=== PATIENT | male | born 2000 | race Caucasian/White ===

== ENCOUNTER 2020-02-09 13:23 | Emergency (ER) | payer OTHER, SELFPAY ==
[2020-02-09 13:30] VITALS: BP 134/78; PULSE 101; RESP 18; TEMP 36.9; O2SAT 100
--- NOTE | 2020-02-09 13:32 | ED.GENADULT ---
HPI - General Adult General Chief complaint: Unspecified Stated complaint: needs inhaler Time Seen by Provider: 02/09/20 13:32 Source: patient and RN notes reviewed History of Present Illness HPI narrative: Patient is a 20-year-old male who presents the urgent care requesting refills of his Symbicort and ProAir. Patient states that he had an appointment with his physician on the and it was rescheduled for what ever reason . Patient states that he is unsure of who his physician is and what their phone number is because his girlfriend has handled all of his appointments for him . Patient denies of any difficulty breathing or shortness of breath. States that he does have chronic asthma and has been out of his inhalers for 2 months. Patient states that when the weather gets colder he seems to have more difficulty breathing. No other acute complaints. No acute distress noted. Patient aware of the plan of care. Some parts of this dictation were generated by voice recognition software and may contain typographical and/or grammatical inaccuracies. Related Data Allergies Allergy/AdvReac Type Severity Reaction Status Date / Time No Known Drug Allergies Allergy Unknown Unknown Verified 02/09/20 13:42 Review of Systems Review of Systems: Narrative: CONSTITUTIONAL: Denies fever, chills, or sweats. EYES: Denies visual changes, redness, or discharge. ENT: Denies rhinorrhea, congestion, sore throat, or otalgia. CARDIOVASCULAR: Denies chest pain, palpitations, or edema. RESPIRATORY: Denies cough or dyspnea. GASTROINTESTINAL: Denies abdominal pain, nausea, vomiting, or diarrhea. GENITOURINARY: Denies dysuria or hematuria. SKIN: Denies rash or itching. MUSCULOSKELETAL: Denies back pain, joint pain, or myalgia. NEUROLOGIC: Denies headache, numbness, or weakness. All other systems reviewed are negative, except as documented in HPI. PMFSH Family History Family History (System 01/19/20 @ 13:32 by Elyse Johnson) Grandparent Diabetes mellitus Social History Social History (System 01/19/20 @ 13:32 by Elyse Johnson) Alcohol intake: never Comments At the time of my signature, I reviewed and agree with the nursing past medical, surgical, social, and family history. There is no relevant family history pertinent to the patient complaint. Exam Narrative: Exam Narrative: GENERAL: This is a well-nourished, well-developed patient, in no apparent distress. HEAD: normocephalic, atraumatic. EYES: PERRL. Sclera clear/white. Vision is grossly intact. EARS: External ears normal NOSE: External nose normal with no obvious nasal discharge, nares without redness, no rhinorrhea. THROAT: Mucous membranes moist NECK: Neck supple CARDIOVASCULAR: Regular rate and rhythm without murmurs, gallops, or rubs. RESPIRATORY: Clear to auscultation. Breath sounds equal bilaterally. No wheezes, rales, or rhonchi. SKIN: warm, intact with no suspicious lesions or rash, good texture and turgor. NEURO: awake, alert, and oriented to person, place and time. There were no obvious focal neurologic abnormalities. EXTREMITIES: No clubbing, cyanosis, or edema. Course Vital Signs Vital signs: Vital Signs Temperature 98.4 F 02/09/20 13:30 Pulse Rate 101 H 02/09/20 13:30 Respiratory Rate 18 02/09/20 13:30 Blood Pressure 134/78 02/09/20 13:30 Pulse Oximetry 100 02/09/20 13:30 Temperature 98.4 F 02/09/20 13:42 Pulse Rate 101 H 02/09/20 13:42 Respiratory Rate 18 02/09/20 13:42 Blood Pressure 134/78 02/09/20 13:42 Pulse Oximetry 100 02/09/20 13:42 Reviewed Medical Decision Making MDM Narrative Medical decision making narrative: Advised the patient to use his PCP to his benefit for medication refills. Do not miss your next appointment with your primary care physician. Discuss refills with him at that time. Differential Diagnosis Differential Diagnosis: Medication reaction Vital Signs Vital Signs: Vital Signs Tempera
[2020-02-09 13:42] VITALS: BP 134/78; PULSE 101; RESP 18; TEMP 36.9; O2SAT 100
== END 2020-02-09 13:49 | disposition home or self-care (01) ==
PROVIDERS: Emergency Provider Nurse Practitioner Family
DX: J45.909 Unspecified asthma, uncomplicated (principal)
CPT/HCPCS: 99211; G0463

== ENCOUNTER 2021-03-20 16:46 | Emergency (ER) | payer OTHER, SELFPAY ==
[2021-03-20 16:56] VITALS: BP 144/76; PULSE 128; RESP 18; TEMP 39.1; O2SAT 95
--- NOTE | 2021-03-20 17:49 | ED.URI ---
HPI - URI/Sore Throat General Chief Complaint: Upper Respiratory Infection Stated Complaint: Chest Congestion/Cough Time Seen by Provider: 03/20/21 18:10 Source: patient Mode of arrival: ambulatory Limitations: no limitations History of Present Illness HPI Narrative: 21-year-old male presented for complaint of chest tightness and cough, onset yesterday. He endorses history of asthma and has been using his inhaler more as needed. He has not taken anything for symptoms. He is noted to have temperature of 102.3 on arrival. Since arrival he endorses increase in body aches and malaise. Patient is not vaccinated for Covid. MD elicited complaint: cough Related Data Allergies Allergy/AdvReac Type Severity Reaction Status Date / Time No Known Drug Allergies Allergy Unknown Unknown Verified 02/09/20 13:42 Review of Systems Review of Systems: CONSTITUTIONAL: Endorses malaise, chills, sweats, fever. EYES: Denies visual changes, redness, or discharge. ENT: Denies rhinorrhea, congestion, sinus pain, otalgia and sore throat. CARDIOVASCULAR: Denies chest pain, palpitations, or edema. RESPIRATORY: Reports cough,chest tight, Denies dyspnea. GASTROINTESTINAL: Denies abdominal pain, nausea, vomiting, diarrhea SKIN: Denies rash or itching. MUSCULOSKELETAL: Endorses myalgia. NEUROLOGIC: Denies headache. [facility] Family History Family History Grandparent Diabetes mellitus Social History Social History Alcohol intake: never Exam Narrative: GENERAL: Ill-appearing, nontoxic no acute distress. HEAD: Normocephalic EYES: PERRLA, conjunctivae clear ENT: Mucous membranes moist. TM pearly stack with dull light reflex bilaterally; no tragal tenderness. Oropharynx erythematous without lesions. Tonsils without exudate, no drooling, no hoarseness, no trismus, uvula midline. NECK: Supple. No lymphadenopathy CHEST: Clear to auscultation, breath sounds equal. No wheezing, rhonchi, rales, or stridor. No respiratory distress, speaks in full sentences. HEART: Regular rate and rhythm. No murmur heard. SKIN: Warm, dry, no rash. NEURO: Alert and oriented x3. PSYCH: Normal mood and affect Course Course Emergency Course: covid neg flu neg will send PCR, pt is aware of symptomatic treatment, has inhaler Patient is aware of diagnosis, understands and agrees to treatment plan. Anticipatory guidance given. Patient agrees to follow-up as directed and is aware of reasons to seek care at the emergency department. Portions of this record may have been created with voice recognition software Level of Care: Express Care Visit Vital Signs Vital signs: Vital Signs Temperature 102.3 F H 03/20/21 16:56 Pulse Rate 128 H 03/20/21 16:56 Respiratory Rate 18 03/20/21 16:56 Blood Pressure 144/76 H 03/20/21 16:56 Pulse Oximetry 95 03/20/21 16:56 Temperature 102.3 F H 03/20/21 16:56 Pulse Rate 128 H 03/20/21 16:56 Respiratory Rate 18 03/20/21 16:56 Blood Pressure 144/76 H 03/20/21 16:56 Pulse Oximetry 95 03/20/21 16:56 reviewed MDM - URI/Sore Throat Differential Diagnosis Differential diagnosis: Likely upper respiratory infection, viral infection and influenza Lab Data Attestation: I reviewed the patient's lab results. Labs: Lab Results 03/20/21 Range/Units Unknown POC SARS CoV-2 Ag Negative (Negative) Influenza A Screen Negative Reference Range: Negative Influenza B Screen Negative Reference Range: Negative Discharge Plan Discharge Clinical Impression: Viral infection Patient Disposition: Home, Self-Care Condition: Stable Instructions: Antibiotic Form, COVID-19 (Coronavirus Disease 2019) (ED) Additional Instructions: Your Rapid COVID test was negative today. If you a
[2021-03-20 17:58] VITALS: TEMP 39.1
[2021-03-20] MEDS: ACETAMINOPHEN 500 MG TABLET 1000 MG PO (17:58)
[2021-03-21 17:57] LABS: SARS-CoV-2 RNA PCR Negative
== END 2021-03-20 18:33 | disposition home or self-care (01) ==
PROVIDERS: Emergency Provider Nurse Practitioner Family
DX: B34.9 Viral infection, unspecified (principal); Z20.822 Contact with and (suspected) exposure to COVID-19
CPT/HCPCS: 87426; 87804; 99213; A9270; C9803; G0463; U0003; U0005

== ENCOUNTER 2021-10-04 15:11 | Emergency (ER) | payer OTHER, SELFPAY ==
--- NOTE | 2021-10-04 15:13 | ED.SKABFB ---
HPI - Skin/Abscess/Foreign Bdy General Chief complaint: Skin/Abscess/Foreign Body Stated complaint: Bee Sting Time Seen by Provider: 10/04/21 15:12 Source: patient Mode of arrival: ambulatory Limitations: no limitations History of Present Illness HPI narrative: Mr. Rebolledo is a 21-year-old male patient presenting to the clinic today with complaints of a wasp to the right hand sting. He reports he was stung by wasp yesterday and today when he woke up he noticed that his hand was red and swollen erythemic and itchy. He denies any discharge but is having some discomfort in his hand. Related Data Allergies Allergy/AdvReac Type Severity Reaction Status Date / Time No Known Drug Allergies Allergy Unknown Unknown Verified 02/09/20 13:42 Review of Systems Review of Systems: Pertinent positives per HPI. Patient denies any fever, chills, rash, headache, visual changes, dizziness, cough, runny nose, sore throat, shortness of breath, chest pain, palpitations, nausea, vomiting, diarrhea, constipation, abdominal pain, or any urinary issues. PMFSH Family History Family History Grandparent Diabetes mellitus Social History Social History Alcohol intake: never Comments At the time of my signature, I reviewed and agree with the nursing past medical, surgical, social, and family history. There is no relevant family history pertinent to the patient complaint. Exam Narrative: General: Well-developed, well nourished, in no apparent distress Head: Normocephalic, atraumatic. Cardio: Regular rate and rhythm, s1 and s2 normal, no murmur appreciated. Resp: Clear to auscultation bilaterally, no rhonchi, rales, wheezing or rubs. Integumentary: [place], warm, and dry, insect sting to the top of the right hand, 1+ pitting edema to the right hand with erythremia and redness Course Course Emergency Course: Portions of this record may have been created with voice recognition software. Level of Care: Express Care Visit Vital Signs Vital signs: Vital Signs Temperature 36.7 C 10/04/21 15:26 Pulse Rate 103 H 10/04/21 15:26 Respiratory Rate 18 08/18/22 15:26 Blood Pressure 132/87 10/04/21 15:26 Pulse Oximetry 94 10/04/21 15:26 Oxygen Delivery Room Air 10/04/21 15:26 Temperature 36.7 C 10/04/21 15:26 Pulse Rate 103 H 10/04/21 15:26 Respiratory Rate 18 10/04/21 15:26 Blood Pressure 132/87 10/04/21 15:26 Pulse Oximetry 94 10/04/21 15:26 Oxygen Delivery Room Air 10/04/21 15:26 Vital signs reviewed MDM - Skin/Abscess/Foreign Bdy MDM Narrative Medical decision making narrative: At the time of visit patient is resting comfortably on the exam table. I suspect the patient is having allergic reaction due to the wasp sting however I do want to treat for secondary infection. Doxycycline and prednisone prescriptions were sent to the pharmacy and he voiced understanding of discharge instructions and agrees to treatment plan. Differential Diagnosis Differential diagnosis: Likely abscess of skin or subcutaneous tissue, cellulitis and insect bites Discharge Plan Discharge Clinical Impression: Accidental insect sting Patient Disposition: Home, Self-Care Condition: Stable Instructions: Antibiotic Form, Insect Bite or Sting (ED), General Allergic Reaction (ED) Additional Instructions: Take doxycycline and prednisone as prescribed. May take Tylenol/Motrin as needed for pain May take Benadryl 25 to 50 mg every 6 hours as needed for itching/swelling Keep right hand up and elevated May apply cool compress to the affected hand to help reduce swelling Follow-up with your PCP in 3 to 5 days if symptoms persist or sooner if they worsen Prescriptions: New prednisone 20 mg tablet 40 mg PO DAILY 5 Days Qty: 10 0RF doxycycline monohydrate 100 mg capsule 100 m
[2021-10-04 15:26] VITALS: BP 132/87; PULSE 103; RESP 18; TEMP 36.7; O2SAT 94
== END 2021-10-04 15:48 | disposition home or self-care (01) ==
PROVIDERS: Emergency Provider Nurse Practitioner Family
DX: T63.461A Toxic effect of venom of wasps, accidental (unintentional), initial encounter (principal); J45.909 Unspecified asthma, uncomplicated
CPT/HCPCS: 99213; G0463

== ENCOUNTER 2022-07-02 22:43 | Emergency (ER) | payer OTHER, SELFPAY ==
--- NOTE | ~2022-07-02 | CT_ITS ---
Non-contrast CT scan of the Abdomen and Pelvis Clinical indication: Abdominal pain Technique: 2.5 mm axial scans were obtained through the abdomen and pelvis without intravenous or or al contrast. Dose reduction technique was used on this scan by utilizing automated exposure control a nd iterative reconstruction technique. The dose-length product (DLP) was 750.21 mGy-cm. Findings: Images through the lung bases reveal no abnormalities. There is a 6 mm ovoid stone at the left mid ureter (axial image 115), resulting in mild left hydroure teronephrosis to this level. No right ureteral stone or right hydronephrosis. There are multiple dyana tional bilateral nonobstructing renal stones, largest measuring up to 6 mm in the right kidney. The liver, spleen, pancreas, gallbladder, and adrenals appear normal. There is no aortic aneurysm. There is no evidence of bowel obstruction. Images through the pelvis were performed. There is no evidence of ascites or lymphadenopathy. Urinary bladder unremarkable. Prostate gland and seminal vesicles are unremarkable. Impression: 6 mm stone at the mid left ureter, with mild left hydroureteronephrosis. Multiple additional bilateral nonobstructing renal stones. Reviewed, dictated and finalized at [facility]. Impression: 6 mm stone at the mid left ureter, with mild left hydroureteronephrosis. Multiple additional bilateral nonobstructing renal stones.
[2022-07-02 22:45] VITALS: BP 145/93; PULSE 54; RESP 14; TEMP 36.9; O2SAT 99
--- NOTE | 2022-07-03 00:08 | ED.GENADULT ---
HPI - General Adult General Chief complaint: Abdominal Pain Stated complaint: abdominal pain Time Seen by Provider: 07/02/22 23:17 History of Present Illness HPI narrative: is a 22-year-old male presenting with chief complaint of nausea vomiting abdominal pain. The pain started yesterday it is an achy/sharp/ burning pain throughout his abdomen but worse on the left side. His nonradiating, 10 out 10 intensity and constant. He has never had this before there are no exacerbating alleviating symptoms. It is associated with multiple episodes of nausea and vomiting. No diarrhea. No fever no chills chest pain or shortness of breath. Related Data Allergies Allergy/AdvReac Type Severity Reaction Status Date / Time No Known Drug Allergies Allergy Unknown Unknown Verified 02/09/20 13:42 [facility] Past Medical History Medical History Asthma Family History Family History Grandparent Diabetes mellitus Social History Social History Alcohol intake: never Exam Narrative: APPEARANCE: No apparent distress. patient is lying prone on the bed and speaking to into the pillow during the interview. He will not roll over when asked. Head: atraumatic. EYES: EOMI, NOSE: Atraumatic NECK: Trachea midline RESPIRATORY: No increased rate of breathing, CTAB CARDIOVASCULAR: RRR, ABDOMINAL: abdomen is soft nontender no guarding or rebound. No CVA tenderness. MUSCULOSKELETAl: No obvious deformities NEURO: Alert. Moving 4/4 extremities SKIN:: Warm, dry. Normal color PSYCHIATRIC: Normal affect Course Vital Signs Vital signs: Vital Signs Temperature 98.4 F 07/02/22 22:45 Pulse Rate 54 L 07/02/22 22:45 Respiratory Rate 14 07/02/22 22:45 Blood Pressure 145/93 H 07/02/22 22:45 Pulse Oximetry 99 07/02/22 22:45 Oxygen Delivery Room Air 07/02/22 22:45 Temperature 98.4 F 07/02/22 22:45 Pulse Rate 71 07/03/22 01:27 Respiratory Rate 15 07/03/22 01:27 Blood Pressure 111/62 07/03/22 01:27 Pulse Oximetry 96 07/03/22 01:27 Oxygen Delivery Room Air 07/02/22 22:[address] [facility] Narrative Medical decision making narrative: -Presentation: 22-year-old male presenting with nonspecific abdominal pain and diffuse nausea and vomiting. We will get a CT scan to evaluate for kidney stone. Patient will be treated symptomatically. -DDX includes but is not limited to: Cannabinoid hyperemesis, kidney stone, gastroenteritis -Co-morbidities complicating care: marijuana use history of kidney stones, asthma -Social determinants of health: patient is a paving machine operator, lives with girlfriend Sandra who is very polite. -External Chart Review: None -Hx from independent Sources: Sandra at bedside -Discussion of Management/Consultants: none -Independent interpretation of studies: White blood cell count 17. Metabolic panel normal. Urinalysis showed +3 blood, greater than 100 red blood cells, 6-10 white blood cells and trace leuk esterase. Urine is not particularly indicative of infection given his white blood cell count of 17 that will give him a dose of ceftriaxone and discharged with Keflex. Cannabinoids are positive. CT abdomen pelvis showed a 7 mm stone within the left mid ureter. Mild upstream hydronephrosis. Dx tests considered but not ordered: -Procedures: -Interventions: 2 L normal saline, Haldol, Pepcid, Zofran -Shared decision making / Disposition: Upon re-evaluation the patient is sleeping. I woke him up to inform him of his results and he quickly went back to sleep. As his pain is under control patient he will be discharged with symptomatic treatment and a trial of outpatient follow-up. return precautions given. -RX Oxycodone, Tylenol, Zofran, Flomax, Keflex Vital Signs Vital Signs: Vital Si
[2022-07-03] MEDS: SODIUM CHLORIDE 0.9% IV 2,000 ML 999 ML IV CONT (00:24)
[2022-07-03] MEDS: ONDANSETRON INJ 4 MG/2 ML VIAL IV PUSH (00:25)
[2022-07-03] MEDS: FAMOTIDINE 20 MG/2 ML VIAL IV PUSH (00:27)
[2022-07-03] MEDS: HALOPERIDOL LACTATE 5 MG/ML VIAL IM (00:28)
[2022-07-03 00:33] LABS: Appearance Urine Cloudy (Clear); Bacteria Urine None Seen /hpf; Basophils Absolute Auto 0.1 K/mm3 (0.0-0.1); Basophils Percent Auto 0.4 % (0.2-1.2); Bilirubin Urine Negative (Negative); Blood Urine 3+ (Negative); Color Urine Yellow (Yellow); Eosinophils Percent Auto 0.2 % (0-4.4); Glucose Urine UA Negative (Negative); Hematocrit 47.1 % (42.0-52.0); Hemoglobin 16.5 g/dL (14.0-18.0); Immature Granulocyte Absolute 0.11 K/mm3 (0.00-0.031); Immature Granulocyte Percent A 0.6 % (0-0.5); Immature Platelet Fraction Pct 3.9 % (0.9-11.2); Ketones Urine Negative (Negative); Leukocyte Esterase Ur Trace LEU/UL (Negative); Lymphocytes Absolute Auto 1.55 K/mm3 (0.9-3.2); Mean Corpuscular Volume 82.9 fl (80-100); Neutrophils Absolute Auto 14.5 K/mm3 (1.3-6.7); Neutrophils Percent Auto 83.8 % (45.5-73.1); Nitrate Urine Negative (Negative); Non Pathogenic Casts 0-2; Platelet Count Result 187 k/mm3 (150-375); Protein Urine 1+ mg/dL (Negative); RBC Urine >100 /hpf (0-2); Red Blood Count 5.68 M/mm3 (4.6-6.20); Specific Grav Ur 1.022 (1.001-1.035); Squamous Epithelial Cell Urine None seen /hpf (Few); White Blood Count 17.3 K/mm3 (4.5-10.0)
[2022-07-03 00:40] LABS: Add Urine Microscopic? YES
[2022-07-03 00:42] LABS: Alanine Aminotransferase 65 U/L (6-50); Alkaline Phosphatase 88 U/L (38-126); Anion Gap 14 mmol/L (8-16); Aspartate Amino Transferase 39 U/L (17-59); Bilirubin,Total 0.8 mg/dL (0.2-1.3); Blood Urea Nitrogen 15 mg/dL (9-20); Calcium 9.7 mg/dL (8.4-10.2); Carbon Dioxide 22 mmol/L (22-30); Chloride 103 mmol/L (98-107); Estimated CRCL calculation 121 ml/min; Estimated Glomerular Filt Rate > 60; Glucose 123 mg/dL (65-110); Lipase 154 U/L (23-300); Magnesium 1.8 mg/dL (1.6-2.3); Potassium 3.7 mmol/L (3.4-5.0); Sodium 139 mmol/L (137-145)
[2022-07-03 00:47] LABS: Amphetamine Screen Urine Negative (Negative); Barbiturate Screen Urine Negative (Negative); Benzodiazepines Screen Urine Negative (Negative); Cannabinoid Screen Urine Positive (Negative); Cocaine Screen Urine Negative (Negative); Methadone Screen Urine Negative (Negative); Opiate Screen Urine Negative (Negative); Phencyclidine Screen Urine Negative (Negative)
[2022-07-03] MEDS: KETOROLAC 15 MG/ML VIAL (*BKC) IV PUSH (01:10)
[2022-07-03 01:27] VITALS: BP 111/62; PULSE 71; RESP 15; O2SAT 96
[2022-07-03 02:44] VITALS: BP 116/70; PULSE 82; RESP 16; TEMP 37; O2SAT 99
== END 2022-07-03 02:44 | disposition home or self-care (01) ==
PROVIDERS: Emergency Provider Emergency Medicine
DX: N13.2 Hydronephrosis with renal and ureteral calculous obstruction (principal); F12.90 Cannabis use, unspecified, uncomplicated; R11.2 Nausea with vomiting, unspecified; J45.909 Unspecified asthma, uncomplicated
CPT/HCPCS: 36415; 74176; 80053; 80307; 81001; 83690; 83735; 85025; 85055; 87086; 96361; 96365; 96372; 96375; 99284; J0696; J1630; J1885; J2405; J7030

== ENCOUNTER 2024-03-07 08:03 | Emergency (ER) | payer OTHER, SELFPAY ==
[2024-03-07 08:07] VITALS: BP 140/89; PULSE 72; RESP 18; TEMP 35.8; O2SAT 97
--- NOTE | 2024-03-07 08:09 | ED_ITS ---
HPI - Abdominal Pain General Chief Complaint: Abdominal Pain Stated Complaint: Abdominal Pain Source: patient and RN notes reviewed Mode of arrival: ambulatory Limitations: no limitations History of Present Illness HPI narrative: 24 y/o male presented for c/o generalized abdominal pain, onset today 0400. Also reports an episode of vomiting upon arrival to the clinic. Pain is described as cramping to the middle of abdomen, rates 6/10. Has not eaten yet today. last meal 2100. Has taken tylenol. LBM this morning, normal. Denies hematochezia, melena, hematemesis, cough, fever. Hx renal stone. Related Data Allergies Allergy/AdvReac Type Severity Reaction Status Date / Time No Known Drug Allergies Allergy Unknown Unknown Verified 03/07/24 08:17 Review of Systems Review of Systems: CONSTITUTIONAL: Denies body aches, fever, chills ENT: Denies rhinorrhea, congestion CARDIOVASCULAR: Denies chest pain, palpitations, or edema. RESPIRATORY: Denies cough or dyspnea. GASTROINTESTINAL: Endorses abdominal pain, nausea, vomiting. Denies diarrhea, hematochezia, melena, hematemesis GENITOURINARY: Denies dysuria, hematuria, or CVA tenderness. SKIN: Denies rash MUSCULOSKELETAL: Denies back pain, joint pain, or myalgia. NEUROLOGIC: Denies headache All systems reviewed & are unremarkable except as noted in HPI and below PMFSH Past Medical History Medical History Asthma Family History Family History Grandparent Diabetes mellitus Social History Social History Alcohol intake: never Comments At time of signature, I have reviewed and agree with nursing past medical, surgical, social and family history unless otherwise noted. Please see nursing chart for further information. There is no relevant family history pertinent to the presenting complaint Exam Narrative: GENERAL: mildly ill-appearing, and in no acute distress. EYES: EOMI. Conjunctivae normal. ENT: Mucous membranes pink and moist. CHEST: No respiratory distress. Clear to auscultation. HEART: Regular rate and rhythm. No murmur appreciated. Normal peripheral pulses. ABDOMEN: abd soft, nondistended, normal active bowel sounds. Nontender abdomen; No guarding, rebound tenderness, asymmetry SKIN: Warm, dry, Capillary refill normal. Normal skin turgor. NEURO: No focal deficits. Alert and oriented x3. PSYCH: flat affect. Course Course Emergency Course: Patient is aware of diagnosis, understands and agrees to treatment plan. Anticipatory guidance given. Patient agrees to follow-up as directed and is aware of reasons to seek care at the emergency department. Portions of this record may have been created with voice recognition software Level of Care: Express Care Visit Vital Signs Vital signs: Vital Signs Temperature 96.4 F L 03/07/24 08:07 Pulse Rate 72 03/07/24 08:07 Respiratory Rate 18 03/07/24 08:07 Blood Pressure 140/89 03/07/24 08:07 Pulse Oximetry 97 03/07/24 08:07 Oxygen Delivery Room Air 03/07/24 08:07 Temperature 96.4 F L 03/07/24 08:07 Pulse Rate 72 03/07/24 08:07 Respiratory Rate 18 03/07/24 08:07 Blood Pressure 140/89 03/07/24 08:07 Pulse Oximetry 97 03/07/24 08:07 Oxygen Delivery Room Air 03/07/24 08:07 Transfer Transfered to: [facility] Transportation: Other (private vehicle) Transfer rationale: Pt is agreeable to transfer. Requests transfer to [facility] via private vehicle. Risks of transportation reviewed with pt including injury, worsening of condition and . v/u. Friend will be driving pt; Report called to hospital, spoke with Shara ADDISON, Dr Carcamo, accepting physician. Pt is in stable condition at time of transfer. Advised to remain NPO and go directly to the hospital. MDM - Abdominal Pain MDM Narrative Medical decision making narrative: Per previous notes, he has hx 7mm renal stone 06/2022. Dry heaving noted in clinic. Zofran given. Pt reassessed states he still feels 'terrible.' Advised ER transfer for further evaluation. Requesting [facility]. Differential Diagnosis Differential diagnosis: Likely abdominal pain, acute appendicitis, calculus of kidney, constipation, diverticulitis, gastroenteritis, pancreatitis and small bowel obstruction Discharge Plan Discharge Clinical Impression: Abdominal pain Qualifiers: Abdominal location: unspecified location Qualified Code(s): R10.9 - Unspecified abdominal pain Patient Disposition: Acute Care Hospital Condition: Stable Patient Language: Croatian Prescriptions: No Action budesonide-formoterol [Symbicort] 160-4.5 mcg/actuation HFA aerosol inhaler 2 puff INHALATION Q12H Qty: 10.2 0RF albuterol sulfate 90 mcg/actuation HFA aerosol inhaler 2 puff INHALATION QID PRN (Reason: shortness of breath or wheezing) Qty: 8 0RF Follow-up/Referrals: UNKNOWN,DOCTOR [Primary Care Provider] - Time of Disposition: 08:56
[2024-03-07] MEDS: ONDANSETRON HCL ODT 4 MG TABLET SUBLINGUAL (08:22)
--- OUTSIDE RECORDS SUMMARY | 2024-03-11 09:59 | XMS_ITS | Referral Summary ---
Author Organization [facility] Address [address] [place] [address] Care Team Providers Care Photo Specialist Name Role Phone Bran Craven MD Primary Care Provider [phone] Source Comments [facility],non-owned Affiliates and Associated Physician Practices is amultiple site organization consisting of ambulatory clinics and hospital sitesin [place], [place], [place] and [place]. This disclosure is being madepursuant to the Care Everywhere program and may not contain all information available regarding this patient. Last updated 17.[facility] Allergies No known active allergies Medications * Be aware that medications may not be up to date on this document. Alwaysverify current medications with the patient. Medication Sig Dispensed Refills Start Date End Date Status ibuprofen (MOTRIN) 400 MG tablet Take 1 Tab by mouth every 6 hours as needed for Pain. 60 Tab 1 01/27/2013 Active acetaminophen (TYLENOL) 325 MG tabletIndications: Pain Take 325 mg by mouth every 4 hours as needed. Maximum allowable Acetaminophen amount = 4 Grams (4000 mg) / 24 hours. Indications: Pain Active albuterol (PROVENTIL;VENTOLI N) (2.5 MG/3ML) 0.083% nebulizer solution Inhale 5 mg by mouth 4 times daily as needed for Shortness of Breath or Wheezing 15 Vial 1 03/07/2016 Active budesonide-formote rol (SYMBICORT) 80-4.5 MCG/ACT inhaler Inhale 2 Puffs by mouth 2 times daily 10.2 g 2 05/12/2016 Active albuterol HFA (VENTOLIN HFA) 108 (90 BASE) MCG/ACT inhaler Inhale 2 Puffs by mouth every 4 hours as needed 2 Inhaler 3 05/15/2016 Active Active Problems Problem Noted Date Diagnosed Date Fracture of metatarsal of right foot, closed Asthma with acute exacerbation 08/28/2012 Assessment & Plan (08/29/2012 1:16 PM CDT): Assessment: 12 yo male with moderate persistent asthma and history of multiple hospitalizations and noncompliance with controller medications presents with acute exacerbation likely secondary to changes in weather, environmental exposures and probably noncompliance with medications. Plan: Albuterol 5mg q3, will space per Asthma Pathway Prednisone 30mg BID for a total of 7 days Peak flows with treatments Continue home medications: Singulair, Flonase and Advair. Given that Michael has had good control since last admission, do not feel that he needs an increase in Advair dosage at this time, although needs reinforcement of benefits from daily use. Review Action Plan with Michael prior to D/C Asthma with acute exacerbati on presenting with status asthmaticus 02/01/2011 Overview (02/02/2011): 11 yo male presented to OSH with increased work of breathing, cough, supplemental O2 requirement at OSH. Admitted to PICU at in status and required continuous albuterol treatment >24 hours. Off cont treatment at 12pm on 01/31. 3 prior hospitalizations for asthma; no prior PICU admissions or intubations. He uses albuterol once a day. Has nightly coughing symptoms. Previously seen by A/I during hospitalization in 10/2010 and did not follow up. Was discharged on Advair previously which patient is taking at home. Spaced to albuterol q3hrs 5am 02/01/11 and to q4hrs early evening 02/01/11. Breathing comfortably with mild expiratory wheeze on exam prior to discharge. On RA. No nasal polyps noted. Asthma education done 02/01/11. Plan: - D/C home 02/02/11 with albuterol every 4 hours as needed - Advair / 2 puffs BID - Home on prednisone for 7 more doses - Singulair - Claritin - Flonase for chronic nasal congestion - Follow up in asthma center 02/26/11 ADHD (attention deficit hyperactivity disorder) 11/05/2010 Overview (11/07/2010): Diagnosed by pMD. Adderall was held during hospitalization. Resolved Problems Problem Noted Date Diagnosed Date Resolved Date Status asthmaticus 11/05/2010 7 Overview (01/18/2012): 11 y.o. male with PMH significant for persistent asthma with previous PICU admissions who presented to on 01/15/2012 with 2 days rhinorrhea and wheezing/cough/SOB x 1 day. Pt was out with friends the previous night and they brought him home early because they were worried about his breathing . At home he was doing albuterol nebs every 2 hours. Finally, mom decided to take him to urgent care where he was given 2 short alb Tx and IM solumedrol. He was then transferred to ED where he was found to have an RICKY of 5. He received 2 cont alb neb, one Atrovent neb and Mg. Also received NS bolus. CXR showing bilateral perihilar and pericardiac shadows suggestive of infiltrate . Mom says no documented fever at home, but has had 3 episodes of NBNB emesis and bloody nose (which she says is chronic). Has a dog at home. Known triggers include mold and weather change. Mom denies night time awakenings due to cough/SOB unless he has URI Sx. Whole family has had URI symptoms. Mom unsure when pt last took Advair; says they were without insurance recently. Pt developed worsening wheezing and increased O2 requirement (though not significantly increased work of breathing) overnight after admission. Pt was transferred to the PICU on 01/16/2012 for closer monitoring, continuous nebs and escalation of care. Patient was transitioned from continuous albuterol and spaced to q4hr treatments. He tolerated q4hr without difficulty and was transferred to the general floor later on 01/16/12. On 01/17/12 was able to wean to RA and continued to tolerate albuterol q4hr treatments. Stable for discharge. Plan: - Continue albuterol q4hr PRN - Continue oral steroids, 40 mg, for total of 5 days - Restart advair 115/21 2 puffs bid - Continue singular at bed time - Asthma education given prior to discharge - Influenza vaccination given prior to discharge - Follow-up with Pulmonology as scheduled 02/12/12. Immunizations Name Administration Dates Next Due DTaP VACCINE IM (6wk-6yrs) 06/19/2004,,1999,1999,1999 HEP B VACCINE, PED/ADOL 07/24/2000,02/08/2000, HIB BOOSTER 07/17/2000, 0,1999,1999 INFLUENZA VACCINE 01/17/2012,12/21/2007 INFLUENZA VACCINE, QUADR. (F LUZONE; FLULAVAL; FLUARIX; AFLURIA QUADRIVALENT; 6MO+), 0.5 ML (IIV4) 05/13/2016 MMR 06/19/2004,02/08/2000 PNEUMOCOCCAL CONJ, PEDS 02/08/2000,1999, POLIO IPV 06/19/2004, 0,1999,1999 VARICELLA 07/17/2000 Social History Tobacco Use Types Packs/Day Years Used Date Smoking Tobacco: Never Smokeless Tobacco: Never Alcohol Use Standard Drinks/Week Comments No 0 (1 standard drink = 0.6 oz pur e alcohol) Sex and Gender Information Value Date Recorded Sex Assigned at Not on file Gender Identity Not on file Sexual Orientation Not on file Last Filed Vital Signs Vital Sign Reading Time Taken Comments Blood Pressure 150/99 02/25/2017 10:00 AM FLAMER AFTER LASTING Pulse 100 02/25/2017 10:00 AM FLAMER AFTER LASTING Temperature 35.9 ??C (96.6 ??F) 02/25/2017 10:[address] Respiratory Rate 19 02/14/2017 4:13 PM FLAMER AFTER LASTING Oxygen Saturation 98% 02/18/2017 11:36 AM FLAMER AFTER LASTING Inhaled Oxygen Concentration 100% 01/17/2012 4 :00 AM FLAMER AFTER LASTING Weight 99.8 kg (220 lb) 03/10/2017 10:05 AM FLAMER AFTER LASTING Height 175.3 cm (5' 9 ) 03/10/2017 10:05 AM FLAMER AFTER LASTING Body Mass Index 32.49 03/10/2017 10:05 AM FLAMER AFTER LASTING Functional Status Functional Status Response Date of Assess ment Is person deaf or have serious hearing difficult y? No 05/12/2016 Is person blind or have serious difficulty seein g? No 05/12/2016 Does person have serious dif ficulty walking/climbing stairs? No 05/12/2016 Does person have difficulty dressing/bathing? No 05/12/2016 Does person have difficulty doing errands alone? No 05/12/2016 Cognitive Status Response Date of Assessm ent Does person have difficulty concentrating/remembering/making decisions? No 05/12/2016 Plan of Treatment Not on file Administered Medications Advance Directives * Full Code (Latest Code Status on File) Date Activated Date Inactivated Comments 05/12/2016 4:40 PM 05/13/2016 1:17 PM Care Teams Photo Specialist Relationship Specialty Start Date End Date Bran Craven MD [address] [place] [phone] PCP - General Internal Medicine 08/23/15
--- OUTSIDE RECORDS SUMMARY | 2024-03-11 09:59 | XMS_ITS | Clinical Summary ---
Author Organization [facility] Address [address] [place] [address] Care Team Providers Care Highway Maintenance Worker Name Role Phone Bran Craven MD Primary Care Provider [phone] Source Comments [facility],non-owned Affiliates and Associated Physician Practices is amultiple site organization consisting of ambulatory clinics and hospital sitesin [place], [place], [place]. This disclosure is being madepursuant to the Care Everywhere program and may not contain all information available regarding this patient. Last updated 17.[facility] Allergies No known active allergies Medications * [...] 02/08/2000,1999, POLIO IPV 06/19/2004, 0,1999,1999 VARICELLA 07/17/2000 Family History Medical History Relation Name Comments Asthma Mother Relation Name Status Comments Mother Social History Tobacco Use Types Packs/Day Years [...] Comments Blood Pressure 150/99 02/25/2017 10:00 AM CREDIT ANALYST Pulse 100 02/25/2017 10:00 AM CREDIT ANALYST Temperature 35.9 ??C (96.6 ??F) 02/25/2017 10:[address] Respiratory Rate 19 02/14/2017 4:13 PM CREDIT ANALYST Oxygen Saturation 98% 02/18/2017 11:36 AM CREDIT ANALYST Inhaled Oxygen Concentration 100% 01/17/2012 4 :00 AM CREDIT ANALYST Weight 99.8 kg (220 lb) 03/10/2017 10:05 AM CREDIT ANALYST Height 175.3 cm (5' 9 ) 03/10/2017 10:05 AM CREDIT ANALYST Body Mass Index 32.49 03/10/2017 10:05 AM CREDIT ANALYST Plan of Treatment Health Maintenance Due Date Last Done Comments PNEUMOCOCCAL VACCINE (1 of 1 - PPSV23) 2005 02/08/2000, 1999, 1999 DTAP/TDAP/TD VACCINES (6 - Tdap) 2010 06/19/2004, 07/17/2000, 1999, Additional history exists HIV SCREENING 2014 HPV VACCINE (1 - Male 3-dose series) 2014 HEPATITIS C SCREENING 01/18/2017 COVID-19 VACCINE (1 - season) 2023 INFLUENZA VACCINE (#1) 2023 7, 01/17/2012, 12/21/2007 DEPRESSION SCREENING 02/18/2024 ZOSTER VACCINE (1 of 2) 2049 HIB VACCINE Completed 07/17/2000, 09/1999, 1999, Additional history exists HEPATITIS B VACCINE Completed 07/24/2000, 02/08/2000, 1999 MENINGOCOCCAL (Group B) VACCINE Aged Out No longer eligible based on patient's age to complete this topic MENINGOCOCCAL VACCINE Aged Out No denise juanita eligible based on patient's age to complete this topic Advance Directives * Full Code (Latest Code Status on File) Date Activated Date Inactivated Comments 05/12/2016 4:40 PM 05/13/2016 1:[address] Maintenance Worker Relationship Specialty Start Date End Date Bran Craven MD [address] [place] [id number] PCP - General Internal Medicine 08/23/15
--- OUTSIDE RECORDS SUMMARY | 2024-03-11 10:00 | XMS_ITS | Referral Summary ---
Author Organization [facility] [address] [facility] Address [address] [place] [address] Care Team Providers Care Loading Unit Operator Name Role Phone Elmer King MD Primary Care Provider [phone] Encounters Date Type Department Care Team Description 03/11/2024 [facility] Care [address] [address] Codi Gutiérrez MA 03/10/2024 [facility] [address] [address] Codi Gutiérrez MA 03/09/2024 [facility] [address] [address] Codi Gutiérrez MA 03/07/2024 9:32 AM TRANSPORTATION AIDE - 03/07/2024 11:42 AM [facility] Emergency [facility] Emergency Department [address] [place] [address] Sandoval Carcamo MD Left ureteral stone (Primary Dx) Discharge Disposition: Discharge to home or self care from Last 3 Months Allergies No known active allergies Medications budesonide-formot Prema (SYMBICORT) 160-4.5 mcg/actuation inhaler Inhale 2 puffs 2 (two) times a day Rinse mouth with water after use. Do not swallow. 9.6 g 11 4 Active albuterol HFA (PROVENTIL HFA,VENTOLIN HFA,PROAIR HFA) 90 mcg/actuation inhalerIndication s:Moderate persistent asthma with exacerbation INHALE 2 PUFFS BY MOUTH EVERY 4 HOURS NEEDED FOR WHEEZING OR SHORTNESS OF BREATH 18 g 2 4 Active tamsulosin (FLOMAX) 0.4 mg extended release capsule Take 1 capsule (0.4 mg total) by mouth daily for 14 days 14 capsule 5 03/21/19 25 Active HYDROcodone-aceta minophen (NORCO) 5-325 mg per tabletIndications :Pain Take 1 tablet by mouth every 6 (six) hours as needed for pain 12 tablet 5 Active Active Problems Problem Noted Date Diagnosed Date Impaired cognition 09/11/2023 Weakness 09/11/2023 Annual physical exam 05/08/2023 Assessment & Plan (05/08/2023 7:53 AM CDT): Visit preventive in nature. Reviewed lifestyle recommendations. Encouraged vaping cessation. Screening labs ordered as well. Will plan accordingly once results are received. Follow-up in 1 year or sooner for any concerns. Moderate persistent asthma with exacerbation Assessment & Plan (05/08/2023 7:54 AM CDT): Reports stable with inhalers. Inhalers refilled. Highly encouraged vaping cessation. RTC for any exacerbations. He is agreeable with plan states understanding. Class 1 obesity due to exces s calories with serious comorbidity and body mass index (BMI) of 33.0 to 33.9 in adult 05/08/2023 Assessment & Plan (05/08/2023 7:53 AM CDT): Encourage heart healthy diet and exercise. Kidney stones 07/09/2022 Left ureteral stone 07/09/2022 Fracture of metatarsal of right foot, closed ADHD (attention deficit hyperactivity disorder) 11/05/2010 Overview (09/11/2023): Diagnosed by pMD. Adderall was held during hospitalization. Immunizations Name Administration Dates Next Due DTaP 06/19/2004, 1,1999,05/30,1999 Hep B, Adolescent or Pediatric 07/24/2000,1999,1999 Hib (PRP-D) 07/17/2000, 0,1999,03/29 IPV 06/19/2004, 0,1999,03/29 Influenza, Quadrivalent, Spl it, Preservative Free, Intramuscular 05/13/2016 Influenza, Trivalent, IM (MDV) 01/17/2012 Influenza, Unspecified 05/08/2023(Deferr ed: Patient Refused),10/18/2022(Deferred: Patient Refused),02/17/2021(Deferred: Patient Refused),02/18/2020(Deferred: Patient Refused),12/21/2007 MMR 06/19/2004,02/08/2000 Pneumococcal Conjugate, Unspecified 02/08/2000,0 1999,1999 Tdap 02/02/2017 Varicella 07/17/2000 Social History Tobacco Use Types Packs/Day Years Used Date Smoking Tobacco: Every Day Vaping Smokeless Tobacco: Never Tobacco Cessation:Ready to Q uit: Not Asked; Counseling Given: Not Answered PHQ-2 Answer Date Recorded PHQ-2 Total Score (If total score is 3 or more points, staff should administer the PHQ-9) 0 05/08/2023 Personal Safety Answer Date Recorded Have you ever been in or are you currently in a harmful physical or emotional relationship or is someone making you feel afraid or unsafe? Denies 03/07/2024 Sex and Gender Information Value Date Recorded Sex Assigned at Not on file Legal Sex Male 2:25 AM TRANSPORTATION AIDE Gender Identity Not on file Sexual Orientation Not on file Last Filed Vital Signs Vital Sign Reading Time Taken Comments Blood Pressure 120/82 03/07/2024 11:30 AM TRANSPORTATION AIDE Pulse 58 03/07/2024 11:30 AM TRANSPORTATION AIDE Temperature 36 ??C (96.8 ??F) 03/07/2024 9:26 AM TRANSPORTATION AIDE Respiratory Rate 15 03/07/2024 11:30 AM TRANSPORTATION AIDE Oxygen Saturation 94% 03/07/2024 11:30 AM TRANSPORTATION AIDE Inhaled Oxygen Concentration - - Weight 103.4 kg (228 lb) 03/07/2024 9:27 AM TRANSPORTATION AIDE Height 175.3 cm (5' 9 ) 09/11/2023 4:59 PM CDT Body Mass Index 33.67 09/11/2023 4:59 PM CDT Plan of Treatment Not on file Procedures Procedure Name Priority Date/Time Associated Diagnosis Comments URINALYSIS, MICROSCOPIC ONLY STAT 03/07/2024 10:56 AM TRANSPORTATION AIDE URINALYSIS AND REFLEX TO MICROSCOPIC AND CULTURE STAT 03/07/2024 10:[address] ABDOMEN PELVIS W CONTRAST ED 03/07/2024 10:00 AM TRANSPORTATION AIDE EGFR STAT 03/07/2024 9:31 AM TRANSPORTATION AIDE DIFFERENTIAL AUTO STAT 03/07/2024 9:3 1 AM TRANSPORTATION AIDE LIPASE STAT 03/07/2024 9:31 AM TRANSPORTATION AIDE COMPREHENSIVE METABOLIC PANEL STAT 03/07/2024 9:31 AM TRANSPORTATION AIDE CBC WITH AUTO DIFFERENTIAL STAT 03/07/2024 9:31 AM TRANSPORTATION AIDE from Last 3 Months Results * (ABNORMAL) Urinalysis reflex to microscopic and culture Urine (03/07/2024 10:56 AM TRANSPORTATION AIDE) Color, ur Yellow Yellow Clarity, ur Clear Clear [facility] ([place]) Specific gravity, ur 1.010 1.003 - 1.030 [facility] ([place]) pH, urine 6.5 [facility] ([place]) Comment: Interpretive Data ? Urine pH is affected by diet, medications, systemic acid-base disturbances, and renal tubular function. ??pH may affect urinary stone formation. ??For example, urine pH below 6.0 may help reduce the tendency for calcium phosphate stones and pH greater than 6.0 may reduce the tendency for uric acid stone formation. Source: [employer] Current Interpretive Data was last revised on 2017 Protein, ur ql Trace Negative [facility] ([place]) Glucose, ur ql Negative Negative [facility] ([place]) Ketones, ur Negative Negative [facility] ([place]) Bilirubin, ur Negative Negative [facility] ([place]) Blood, ur 2+(A) Negative [facility] ([place]) Urobilinogen, ur <2.0 <2.0 mg/dL [facility] ([place]) Nitrite, ur Negative Negative [facility] ([place]) Leukocyte esterase, ur Negative Negative [facility] ([place]) UA reflex comment Reflex to microscopic UA will be performed. [facility] ([place]) Urine 03/07/2024 10:5 6 AM TRANSPORTATION AIDE 03/07/2024 10:57 AM TRANSPORTATION AIDE Sandoval Carcamo MD LAB MICROBIOLOGY - GENERAL O RDERABLES Final Result [facility] ([place]) [address] [facility] [place] [address] * (ABNORMAL) Urinalysis, microscopic only (03/07/2024 10:56 AM TRANSPORTATION AIDE) WBC, ur 6-10(A) 0 - 5 /HPF RBC, ur >50(A) 0 - 2 /HPF [facility] ([place]) Epithelial cells, squamous, ur 1-5 0 - 5 /HPF [facility] ([place]) Mucous, ur Present(A) [facility] ([place]) Culture Reflex Comment Reflex conditions for urine culture (WBC >10) not met. [facility] ([place]) Urine 03/07/2024 10:5 6 AM TRANSPORTATION AIDE 03/07/2024 10:57 AM TRANSPORTATION AIDE Sandoval Carcamo MD LAB URINE ORDERABLES Final R esult [facility] ([place]) [address] [facility] [place] [address] * CT Abdomen Pelvis W Contrast (03/07/2024 10:00 AM TRANSPORTATION AIDE) Anatomical Region Laterality Modality Body N/A Computed Tomogra phy 03/07/2024 10:3 4 AM TRANSPORTATION AIDE Narrative 03/07/2024 10:37 AM TRANSPORTATION AIDE EXAM DESCRIPTION: ?? CT ABDOMEN PELVIS W CONTRAST REASON FOR STUDY: ?? Abdominal pain, acute, nonlocalized ?? Mid abdomen pain, nausea, and vomiting started early this morning. Hx of kidney stones. ? TECHNIQUE: CT scan of the abdomen and pelvis performed with intravenous and ?? without ??oral contrast using helical scanning technique with dynamic intravenous contrast injection. Reconstructed coronal and sagittal MPR images reviewed. All images stored on PACS. Automated exposure control was used as a dose optimization technique for this examination. CONTRAST TYPE/DOSE: ?? 100mL of IOVERSOL 350 MG IODINE/ML INTRAVENOUS SYRINGE ?? injected via ?? intravenous COMPARISON: ?? None available FINDINGS: LOWER CHEST: ?? No significant pulmonary abnormalities. No effusion. LIVER: ?? Normal size. ??No identified cystic or solid masses. ?? Mild hypoattenuation compatible with steatosis. 2 GALLBLADDER: ?? No stones identified. No wall thickening or inflammatory changes. BILE DUCTS: ?? No intrahepatic or extrahepatic ductal dilatation. SPLEEN: ?? Normal size. ??No focal lesions. PANCREAS: ?? No identified cystic or solid masses. No significant calcifications. No adjacent inflammation or peripancreatic fluid collections. Pancreatic duct not dilated. ?? ADRENALS: ?? Normal. KIDNEYS/URINARY TRACT: ?? No identified significant cystic or solid masses. ?? Right kidney lower pole 0.5 cm nonobstructing stone. ??Left kidney upper pole punctate calcification. ??Delayed left nephrogram. ??Moderate left-sided hydronephrosis and hydroureter. ??Left ureter vesicular junction 0.5 cm stone.. No hydronephrosis or hydroureter.. ?Urinary bladder is unremarkable. GI: ?? No dilated bowel loops. No obvious wall thickening. ??Normal appendix. ?? No significant diverticular disease. PERITONEUM: ?? No ascites or free air. RETROPERITONEUM: ?? No mass or adenopathy. REPRODUCTIVE: ?? No significant abnormality. VASCULATURE: ?? No abdominal aortic aneurysm. MUSCULOSKELETAL: ?? No significant abnormality. OTHER: ?? No other abnormality. IMPRESSION: Left ureter vesicular junction 0.5 cm stone with moderate left-sided hydronephrosis and hydroureter. ??Delayed nephrogram on the left. Right kidney lower pole 0.5 cm nonobstructing stone. Left kidney upper pole punctate calcification. Mild hepatic steatosis. THIS IS AN ELECTRONICALLY VERIFIED FINAL REPORT 03/07/2024 10:37 AM - Electronically signed by ??Mello Conrad M.D. JA: RADHA D: ??03/07/2024 10:37 AM T: ??03/07/2024 10:37 AM Report ID: [id number] Reading Location: ??[id number] Procedure Note Mello Conrad MD - 03/07/2024 EXAM DESCRIPTION: CT ABDOMEN PELVIS W CONTRAST REASON FOR STUDY: Abdominal pain, acute, nonlocalized Mid abdomen pain, nausea, and vomiting started early this morning. Hx of kidney stones. TECHNIQUE: CT scan of the abdomen and pelvis performed with intravenousand without oral contrast using helical scanning technique with dynamic intravenous contrast injection. Reconstructed coronal and sagittal MPRimages reviewed. All images stored on PACS. Automated exposure control was usedas a dose optimization technique for this examination. CONTRAST TYPE/DOSE: 100mL of IOVERSOL 350 MG IODINE/ML INTRAVENOUSSYRINGE injected via intravenous COMPARISON: None available FINDINGS: LOWER CHEST: No significant pulmonary abnormalities. No effusion. LIVER: Normal size. No identified cystic or solid masses. Mild hypoattenuation compatible with steatosis. 2 GALLBLADDER: No stones identified. No wall thickening or inflammatory changes. BILE DUCTS: No intrahepatic or extrahepatic ductal dilatation. SPLEEN: Normal size. No focal lesions. PANCREAS: No identified cystic or solid masses. No significant calcifications. No adjacent inflammation or peripancreatic fluidcollections. Pancreatic duct not dilated. ADRENALS: Normal. KIDNEYS/URINARY TRACT: No identified significant cystic or solid masses. Right kidney lower pole 0.5 cm nonobstructing stone. Left kidney upperpole punctate calcification. Delayed left nephrogram. Moderate left-sided hydronephrosis and hydroureter. Left ureter vesicular junction 0.5 cmstone.. No hydronephrosis or hydroureter.. Urinary bladder is unremarkable. GI: No dilated bowel loops. No obvious wall thickening. Normalappendix. No significant diverticular disease. PERITONEUM: No ascites or free air. RETROPERITONEUM: No mass or adenopathy. REPRODUCTIVE: No significant abnormality. VASCULATURE: No abdominal aortic aneurysm. MUSCULOSKELETAL: No significant abnormality. OTHER: No other abnormality. IMPRESSION: Left ureter vesicular junction 0.5 cm stone with moderate left-sided hydronephrosis and hydroureter. Delayed nephrogram on the left. Right kidney lower pole 0.5 cm nonobstructing stone. Left kidney upper pole punctate calcification. Mild hepatic steatosis. THIS IS AN ELECTRONICALLY VERIFIED FINAL REPORT 03/07/2024 10:37 AM - Electronically signed by Mello Conrad M.D. JA: RADHA Report ID: [id number] Reading Location: [place] [address] [place] Sandoval Carcamo MD IMG CT PROCEDURES Final Resu lt * eGFR (03/07/2024 9:31 AM TRANSPORTATION AIDE) eGFR >90 >=60 mL/min/1. 73 m2 Comment: Interpretive Data Reference Interval Normal ?>/= 90 mL/min/1.73m2 Mildly decreased* ? 60 - 89 mL/min/1.73m2 Mildly to moderately decreased ?45 - 59 mL/min/1.73m2 Moderately to severely decreased ??30 - 44 mL/min/1.73m2 Severely decreased ?15 - 29 mL/min/1.73m2 Kidney Failure ?< 15 ??mL/min/1.73m2 *Relative to young adult level Estimated glomerular filtration rate is determined by the 2020 CKD-EPI equation recommended by the National Kidney Foundation (A Unifying Approach to GFR Estimation: Recommendations of the NKF-ASK Task Force on Reassessing the Inclusion of Race in Diagnosing Kidney Disease, JASN 2020). The CKD-EPI equation should not be used for patients with unstable renal function and has not been validated in children and those over 70. Current interpretive data was last reviewed 2020. Blood 03/07/2024 9:31 AM TRANSPORTATION AIDE 03/07/2024 9:35 AM TRANSPORTATION AIDE us Sandoval Carcamo MD LAB BLOOD ORDERABLES Final R esult [facility] ([place]) [address] [facility] [place] [address] * (ABNORMAL) Differential, auto (03/07/2024 9:31 AM TRANSPORTATION AIDE) Neutrophil abs 12.3(H) 1.5 - 6.5 K/cumm Imm gran abs 0.1 0.0 - 0.1 K/cumm [facility] ([place]) Lymphocyte abs 1.4 0.8 - 3.3 K/cumm [facility] ([place]) Monocyte abs 0.9(H) 0.2 - 0.8 K/cumm [facility] ([place]) Eosinophil abs 0.1 0.0 - 0.5 K/cumm [facility] ([place]) Basophil abs 0.1 0.0 - 0.1 K/cumm [facility] ([place]) Neutrophil pct 82.9 % [facility] ([place]) Comment: Interpretive Data Percent cell count reference ranges are not reported, since discordance with absolute values may lead to misinterpretation of CBC data. Current Interpretive Data was last revised on 2017. Imm gran pct 0.9 % [facility] ([place]) Comment: Interpretive Data Percent cell count reference ranges are not reported, since discordance with absolute values may lead to misinterpretation of CBC data. Current Interpretive Data was last revised on 2017. Lymphocyte pct 9.4 % [facility] ([place]) Comment: Interpretive Data Percent cell count reference ranges are not reported, since discordance with absolute values may lead to misinterpretation of CBC data. Current Interpretive Data was last revised on 2017. Monocyte pct 6.0 % [facility] ([place]) Comment: Interpretive Data Percent cell count reference ranges are not reported, since discordance with absolute values may lead to misinterpretation of CBC data. Current Interpretive Data was last revised on 2017. Eosinophil pct 0.3 % [facility] ([place]) Comment: Interpretive Data Percent cell count reference ranges are not reported, since discordance with absolute values may lead to misinterpretation of CBC data. Current Interpretive Data was last revised on 2017. Basophil pct 0.5 % [facility] ([place]) Comment: Interpretive Data Percent cell count reference ranges are not reported, since discordance with absolute values may lead to misinterpretation of CBC data. Current Interpretive Data was last revised on 2017. Blood 03/07/2024 9:31 AM TRANSPORTATION AIDE 03/07/2024 9:35 AM TRANSPORTATION AIDE us Sandoval Carcamo MD LAB BLOOD ORDERABLES Final R esult [facility] ([place]) [address] [facility] [place] [address] * (ABNORMAL) CBC with auto differential (03/07/2024 9:31 AM TRANSPORTATION AIDE) WBC 14.8(H) 3.8 - 9.9 K/cumm Hgb 16.4 13.0 - 17.5 g/dL [facility] ([place]) Hct 48.1 38.9 - 50.3 % [facility] ([place]) Plt 264 150 - 400 K/cumm [facility] ([place]) MPV 9.0(L) 9.1 - 12.3 fL [facility] ([place]) RBC 5.74 4.30 - 5.80 M/cumm [facility] ([place]) MCV 83.8 81.3 - 96.4 fL [facility] ([place]) MCH 28.6 27.1 - 33.3 pg [facility] ([place]) MCHC 34.1 32.3 - 35.7 g/dL [facility] ([place]) RDW CV 12.3 11.1 - 14.9 % [facility] ([place]) RDW SD 36.9 35.7 - 48.1 fL [facility] ([place]) NRBC abs 0.00 0.00 - 0.01 K/cumm [facility] ([place]) Blood (Blood, Venous) 03/07/2024 9:31 AM TRANSPORTATION AIDE 03/07/2024 9:35 AM TRANSPORTATION AIDE Sandoval Carcamo MD LAB BLOOD ORDERABLES Final R esult Performing Organization Address City/[facility]/ZIP Co de Phone Number [facility] ([place]) [address] [place] [address] * Lipase (03/07/2024 9:31 AM TRANSPORTATION AIDE) Pathologist [facility] Lipase 38 10 - 99 Units/L Blood (Blood, Venous) 03/07/2024 9:31 AM TRANSPORTATION AIDE 03/07/2024 9:35 AM TRANSPORTATION AIDE Sandoval Carcamo MD LAB BLOOD ORDERABLES Final R esult Performing Organization Address [facility] de Phone Number [facility] ([place]) 1 [facility] [place] [address] * (ABNORMAL) Comprehensive metabolic panel (03/07/2024 9:31 AM TRANSPORTATION AIDE) Pathologist [facility] Sodium 138 135 - 145 mmol/L Potassium, pl 4.1 3.3 - 4.9 mmol/L [facility] ([place]) Chloride 103 97 - 110 mmol/L [facility] ([place]) CO2 25 22 - 32 mmol/L [facility] ([place]) Anion gap 11 2 - 15 mmol/L [facility] ([place]) BUN 15 6 - 25 mg/dL [facility] ([place]) Creatinine 1.05 0.80 - 1.30 mg/dL [facility] ([place]) Glucose 116 70 - 199 mg/dL [facility] ([place]) Comment: Interpretive Data Fasting glucose >/= 126 mg/dl is diagnostic for diabetes. ?? Fasting is defined as no caloric intake for at least 8 hours. Fasting glucose between 100 mg/dl to 125 mg/dl is diagnostic of prediabetes. In a patient with classic symptoms of hyperglycemia or hyperglycemic crisis, a random glucose >/= 200 mg/dl is diagnostic for diabetes. In the absence of unequivocal hyperglycemia, results should be confirmed by repeat testing. The classification and Diagnosis of Diabetes Diabetes Care 202; 46: S19-S40. Current interpretive data was last revised 2022. Calcium 10.2 8.5 - 10.3 mg/dL [facility] ([place]) Bilirubin, total 0.8 0.1 - 1.2 mg/dL [facility] ([place]) Protein, pl 7.6 6.5 - 8.5 g/dL [facility] ([place]) Albumin 4.6 3.5 - 5.0 g/dL [facility] ([place]) Alk phos 85 40 - 130 Units/L [facility] ([place]) ALT 57(H) 7 - 55 Units/L [facility]) AST 33 10 - 50 Units/L [facility] ([place]) Blood 03/07/2024 9:31 AM TRANSPORTATION AIDE 03/07/2024 9:35 AM TRANSPORTATION AIDE Sandoval Carcamo MD LAB BLOOD ORDERABLES Final R esult [facility] ([place]) [address] [facility] [place] [address] from Last 3 Months Insurance [facility] Care Teams Loading Unit Operator Relationship Specialty Start Date End Date Elmer King MD [address] [place] [address] PCP - General Family Medicine 06/29/21
--- OUTSIDE RECORDS SUMMARY | 2024-03-11 10:00 | XMS_ITS | Patient Health Summary ---
Author Organization [facility] Definition 6 Address [address] [place] [address] Care Team Providers Care Service Desk Analyst Name Role Phone Bran Craven MD Primary Care Provider [phone] Note from [facility],non-owned Affiliates and Associated Physician Practices is amultiple site organization consisting of ambulatory clinics and hospital sitesin [place], [place], [place] and [place]. This disclosure is being madepursuant to the Care Everywhere program and may not contain all information available regarding this patient. Last updated 17.[facility] Definition 6 Allergies No known active allergies Medications * Be aware that medications may not be up to date on this document. Alwaysverify current medications with the patient. * ibuprofen (MOTRIN) 400 MG tablet(Started 01/27/2013) Take 1 Tab by mouth every 6 hours as needed for Pain. 1 refill left * acetaminophen (TYLENOL) 325 MG tablet Take 325 mg by mouth every 4 hours as needed. Maximum allowable Acetaminophen amount = 4 Grams (4000 mg) / 24 hours. Indications: Pain * albuterol (PROVENTIL;VENTOLIN) (2.5 MG/3ML) 0.083% nebulizer solution(Started 03/07/2016) Inhale 5 mg by mouth 4 times daily as needed for Shortness of Breath or Wheezing 1 refill remaining * budesonide-formoterol (SYMBICORT) 80-4.5 MCG/ACT inhaler(Started 05/12/2016) Inhale 2 Puffs by mouth 2 times daily 2 refills remaining * albuterol HFA (VENTOLIN HFA) 108 (90 BASE) MCG/ACT inhaler(Started 05/15/2016) Inhale 2 Puffs by mouth every 4 hours as needed 3 refills remaining Active Problems Problem Noted Date Diagnosed Date Fracture of metatarsal of right foot, closed Asthma with acute exacerbation 08/28/2012 Asthma with acute exacerbati on presenting with status asthmaticus 02/01/2011 ADHD (attention deficit hyperactivity disorder) 11/05/2010 Resolved Problems Problem Noted Date Diagnosed Date Resolved Date Status asthmaticus 11/05/2010 7 Immunizations * DTaP VACCINE IM (6wk-6yrs)(Given 06/19/2004, 07/17/2000, 1999, 1999, 1999) * HEP B VACCINE, PED/ADOL(Given 07/24/2000, 02/08/2000, 1999) * HIB BOOSTER(Given 07/17/2000, 1999, 1999, 1999) * INFLUENZA VACCINE(Given 01/17/2012, 12/21/2007) * INFLUENZA VACCINE, QUADR. (FLUZONE; FLULAVAL; FLUARIX; AFLURIA QUADRIVALENT; 6MO+), 0.5 ML (IIV4)(Given 05/13/2016) * MMR(Given 06/19/2004, 02/08/2000) * PNEUMOCOCCAL CONJ, PEDS(Given 02/08/2000, 1999, 1999) * POLIO IPV(Given 06/19/2004, 1999, 1999, 1999) * VARICELLA(Given 07/17/2000) Social History Tobacco Use Types Packs/Day Years [...] Comments Blood Pressure 150/99 02/25/2017 10:00 AM ASSET PROTECTION MANAGER Pulse 100 02/25/2017 10:00 AM ASSET PROTECTION MANAGER Temperature 35.9 ??C (96.6 ??F) 02/25/2017 10:[address] Respiratory Rate 19 02/14/2017 4:13 PM ASSET PROTECTION MANAGER Oxygen Saturation 98% 02/18/2017 11:36 AM ASSET PROTECTION MANAGER Inhaled Oxygen Concentration 100% 01/17/2012 4 :00 AM ASSET PROTECTION MANAGER Weight 99.8 kg (220 lb) 03/10/2017 10:05 AM ASSET PROTECTION MANAGER Height 175.3 cm (5' 9 ) 03/10/2017 10:05 AM ASSET PROTECTION MANAGER Body Mass Index 32.49 03/10/2017 10:05 AM ASSET PROTECTION MANAGER Procedures * XR CERVICAL SPINE 2 OR 3VW(Performed 03/10/2017) * XR THORACIC SPINE 2VW(Performed 03/10/2017) * VANCOMYCIN LEVEL TROUGH(Performed 02/13/2017) * XR THORACIC SPINE 2VW(Performed 02/12/2017) * CULTURE ANAEROBE(Performed 02/11/2017) * CULTURE AEROBIC(Performed 02/11/2017) * CULTURE BLOOD(Performed 02/11/2017) * BASIC METABOLIC PANEL (CALCIUM TOTAL)(Performed 02/11/2017) * CBC W AUTO DIFFERENTIAL(Performed 02/11/2017) * CBC W AUTO DIFFERENTIAL(Performed 02/11/2017) * CULTURE BLOOD(Performed 02/11/2017) * XR CHEST 1VW PORTABLE(Performed 02/07/2017) * PHOSPHORUS BLOOD(Performed 02/06/2017) * CBC W AUTO DIFFERENTIAL(Performed 02/06/2017) * DIFFERENTIAL MANUAL(Performed 02/06/2017) * BASIC METABOLIC PANEL (CALCIUM TOTAL)(Performed 02/06/2017) * MAGNESIUM BLOOD(Performed 02/06/2017) * CBC W AUTO DIFFERENTIAL(Performed 02/06/2017) * XR THORACIC SPINE 1VW(Performed 02/05/2017) * DIFFERENTIAL MANUAL(Performed 02/05/2017) * PHOSPHORUS BLOOD(Performed 02/05/2017) * MAGNESIUM BLOOD(Performed 02/05/2017) * BASIC METABOLIC PANEL (CALCIUM TOTAL)(Performed 02/05/2017) * CBC W AUTO DIFFERENTIAL(Performed 02/05/2017) * CBC W AUTO DIFFERENTIAL(Performed 02/05/2017) * XR THORACIC SPINE 2VW(Performed 02/04/2017) * DIFFERENTIAL MANUAL(Performed 02/04/2017) * CBC W AUTO DIFFERENTIAL(Performed 02/04/2017) * PHOSPHORUS BLOOD(Performed 02/04/2017) * MAGNESIUM BLOOD(Performed 02/04/2017) * BASIC METABOLIC PANEL (CALCIUM TOTAL)(Performed 02/04/2017) * CBC W AUTO DIFFERENTIAL(Performed 02/04/2017) * BASIC METABOLIC PANEL (CALCIUM TOTAL)(Performed 02/03/2017) * PHOSPHORUS BLOOD(Performed 02/03/2017) * MAGNESIUM BLOOD(Performed 02/03/2017) * CBC W/O DIFFERENTIAL(Performed 02/03/2017) * CALCIUM IONIZED WHOLE BLOOD(Performed 02/03/2017) * BLOOD GASES ARTERIAL(Performed 02/03/2017) * XR CHEST 1VW PORTABLE(Performed 02/03/2017) * MAGNESIUM BLOOD(Performed 02/02/2017) * PHOSPHORUS BLOOD(Performed 02/02/2017) * DRUG ABUSE PANEL 10-20+ETHANOL URINE NO CONFIRM(Performed 02/02/2017) * CT HEAD WO CONTRAST(Performed 02/02/2017) * CT CERVICAL SPINE WO CONTRAST(Performed 02/02/2017) * CT LUMBAR SPINE WO CONTRAST(Performed 02/02/2017) * CT CHEST ABDOMEN PELVIS W CONT(Performed 02/02/2017) * CT FACIAL BONES WO CONTRAST(Performed 02/02/2017) * CT THORACIC SPINE WO CONTRAST(Performed 02/02/2017) * TYPE + SCREEN PANEL(Performed 02/02/2017) * XR PELVIS 1 OR 2VW(Performed 02/02/2017) * XR CHEST 1VW PORTABLE(Performed 02/02/2017) * LIPASE BLOOD(Performed 02/02/2017) * ALCOHOL ETHYL BLOOD(Performed 02/02/2017) * COMPREHENSIVE METABOLIC PANEL(Performed 02/02/2017) * PTT [facility](Performed 02/02/2017) * PT-INR [facility](Performed 02/02/2017) * CBC W AUTO DIFFERENTIAL(Performed 02/02/2017) * CBC W AUTO DIFFERENTIAL(Performed 02/02/2017) * XR CHEST 2VW(Performed 05/12/2016) Performed for Asthma with acute exacerbation, unspecified asthma severity * ED CRITICAL CARE(Performed 02/01/2014) Performed for Asthma exacerbation (HCC) * XR FOOT RIGHT 3VW OR MORE(Performed 04/27/2013) Performed for Injury, other and unspecified, knee, leg, ankle, and foot * XR CHEST 2VW(Performed 08/28/2012) Performed for Asthma with status asthmaticus (HCC) * XR ANKLE RIGHT 3VW OR MORE(Performed 02/21/2012) Performed for Closed right ankle fracture * ED SPLINT APPLICATION(Performed 01/26/2012) * XR TIBIA FIBULA RIGHT 2VW(Performed 01/24/2012) Performed for Injury, other and unspecified, knee, leg, ankle, and foot * XR ANKLE RIGHT 3VW OR MORE(Performed 01/24/2012) Performed for Injury, other and unspecified, knee, leg, ankle, and foot * CARDIAC EKG ORDER(Performed 01/21/2012) * CULTURE MRSA(Performed 01/16/2012) Performed for Status asthmaticus (HCC) * BASIC METABOLIC PANEL (CALCIUM TOTAL)(Performed 01/15/2012) * BLOOD GASES CAP + COOX PANEL(Performed 01/15/2012) * DIFFERENTIAL MANUAL(Performed 01/15/2012) * CBC W AUTO DIFFERENTIAL(Performed 01/15/2012) * XR CHEST 2VW(Performed 01/15/2012) Performed for Cough * INFLUENZA A+B ANTIGEN RAPID W REFLX CULTURE(Performed 01/15/2012) * VIRAL CULTURE RESPIRATORY(Performed 01/15/2012) * CARDIAC RHYTHM STRIP ORDER(Performed 02/05/2011) * LYTES (NA K CL CO2) BLOOD(Performed 01/31/2011) * MYCOPLASMA PNEUMONIAE AB IGG/IGM PANEL(Performed 01/30/2011) * MYCOPLASMA PNEUMONIAE PCR(Performed 01/30/2011) * LYTES (NA K CL CO2) BLOOD(Performed 01/30/2011) * XR CHEST 1VW(Performed 01/30/2011) Performed for Status asthmaticus (HCC) * CULTURE MRSA(Performed 01/30/2011) * DIFFERENTIAL MANUAL(Performed 01/30/2011) * CBC W AUTO DIFFERENTIAL(Performed 01/30/2011) * BASIC METABOLIC PANEL (CALCIUM TOTAL)(Performed 01/30/2011) * OXYGEN(Performed 01/30/2011) * CARDIAC RHYTHM STRIP ORDER(Performed 11/08/2010) * IP CONSULT TO PEDIATRIC ALLERGY(Performed 11/06/2010) * ALLERGEN INHALANT COMPREHENSIVE PROFILE(Performed 11/06/2010) * XR CHEST 2VW(Performed 11/05/2010) Performed for Wheezing Results * XR CERVICAL SPINE 2 OR 3VW (03/10/2017 10:07 AM ASSET PROTECTION MANAGER) Anatomical Region Laterality Modality Spine Other Impressions 03/10/2017 1:57 PM ASSET PROTECTION MANAGER IMPRESSION: Normal alignment of the cervical spine. The patient's known avulsion fracture of the right occipital condyle is not seen on this study. Dictated by Richy Kelsey MD (residential sales representative). IDr. ILEANA M.D. have personally reviewed and interpreted this examination/study. This report was electronically signed by ILEANA CANO M.D. ??on 03/10/2017 1:57 PM . Narrative 03/10/2017 1:57 PM ASSET PROTECTION MANAGER EXAMINATION: XR SPINE CERVICAL 2 OR 3 VIEWS HISTORY: open mouth FINDINGS: Comparison is made with a CT cervical spine from 02/02/2017. A c-collar is in place. C7 is not well-seen on the lateral image. The vertebral bodies are normally aligned. The patient's known avulsion fracture of the right occipital condyle is not seen on this study. The intervertebral disc spaces are maintained. The dens is intact and the lateral masses are normally aligned. The predental interval and prevertebral soft tissues are normal. Procedure Note Ileana Cano MD - 05/21/2017 EXAMINATION: XR SPINE CERVICAL 2 OR 3 VIEWS HISTORY: open mouth FINDINGS: Comparison is made with a CT cervical spine from 02/02/2017. A c-collar is in place. C7 is not well-seen on the lateral image. Thevertebral bodies are normally aligned. The patient's known avulsionfracture of the right occipital condyle is not seen on this study. Theintervertebral disc spaces are maintained. The dens is intact and the lateral masses are normally aligned. Thepredental interval and prevertebral soft tissues are normal. IMPRESSION IMPRESSION: Normal alignment of the cervical spine. The patient's known avulsionfracture of the right occipital condyle is not seen on this study. Dictated by Richy Kelsey MD (residential sales representative). I, Dr. ILEANA CANO M.D. have personally reviewed and interpreted thisexamination/study. This report was electronically signed by ILEANA CANO M.D. on 03/10/20171:57 PM . Yash Lehman MD DIAGNOSTIC IMAGING O RDERABLES * XR THORACIC SPINE 2VW (03/10/2017 10:02 AM ASSET PROTECTION MANAGER) Only the most recent of3 resultswithin the time period is included. Anatomical Region Laterality Modality Spine Other Impressions 03/10/2017 1:58 PM ASSET PROTECTION MANAGER IMPRESSION: Externally braced T8 and T10 compression fractures in unchanged appearance. Dictated by Richy Kelsey MD (residential sales representative). Dr. ILEANA Maldonado M.D. have personally reviewed and interpreted this examination/study. This report was electronically signed by ILEANA CANO M.D. ??on 03/10/2017 1:58 PM . Narrative 03/10/2017 1:58 PM ASSET PROTECTION MANAGER EXAMINATION: XR SPINE THORACIC 2 VWS HISTORY: thoracic fx FINDINGS: Comparison is made with a study from 2017. An external brace is present. T8 and T10 compression fractures are unchanged with approximately 50 percent height loss anteriorly. No new compression fracture is identified. No subluxation is seen. Procedure Note Ileana Cano MD - 05/21/2017 EXAMINATION: XR SPINE THORACIC 2 VWS HISTORY: thoracic fx FINDINGS: Comparison is made with a study from 2017. An external brace is present. T8 and T10 compression fractures areunchanged with approximately 50 percent height loss anteriorly. No newcompression fracture is identified. No subluxation is seen. IMPRESSION IMPRESSION: Externally braced T8 and T10 compression fractures in unchangedappearance. Dictated by Richy Kelsey MD (residential sales representative). Dr. ILEANA Maldonado M.D. have personally reviewed and interpreted thisexamination/study. This report was electronically signed by ILEANA CANO M.D. on 03/10/20171:58 PM . Yash Lehman MD DIAGNOSTIC IMAGING O RDERABLES * (ABNORMAL) VANCOMYCIN LEVEL TROUGH (02/13/2017 10:35 AM ASSET PROTECTION MANAGER) Vancomycin Trough 5.2(L) 10.0 - 20.0 mcg/mL [facility] Blood specimen (specimen) BLOOD SPECIMEN / Unknown 02/13/2017 10:35 AM ASSET PROTECTION MANAGER 02/13/2017 10:38 AM ASSET PROTECTION MANAGER Jr Bianchi MD LAB - CHEMISTRY JESSIE SIMPSON [address] [phone] * (ABNORMAL) CULTURE ANAEROBE (02/11/2017 6:15 PM ASSET PROTECTION MANAGER) Culture Anaerobic PROPIONIBACTERIUM ACNES(A) [facility] Comment:Light Growth Propion ibacterium Acnes Abscess SPECIMEN FROM ABSCESS / Unknown 02/11/2017 6:15 PM ASSET PROTECTION MANAGER 02/11/2017 6:32 PM ASSET PROTECTION MANAGER Narrative [facility] - 02/18/2017 3:27 PM ASSET PROTECTION MANAGER Surgical incision site on patient's scalp Specimen Type->Abscess Resulting Lab: ?? [facility] MICROBIOLOGY [address] [place] [address] PH: [phone] Resulting Lab: ?? [facility]CROBIOLOG[facility] [address] [place] [address] PH: [phone] Resulting Lab: ?? [facility] MICROBIOLOGY [address] [place] [address] PH: [phone] Aurelia Chambers MD LAB - MICROBIOL OGY ORDERABLES Performing Organization Address City/State/[facility] Co de Phone Number [address] [phone] * (ABNORMAL) CULTURE AEROBIC (02/11/2017 6:14 PM ASSET PROTECTION MANAGER) Culture Aerobic Normal Skin Berenice [facility] Culture Aerobic GRAM NEGATIVE BACILLI(A) [facility] Comment: Rare Gram Negative Bacilli Id'd as Lelliottia amnigena (formerly Enterobacter amnigenus) Gram Stain Moderate Red Blood Cells [facility] Gram Stain Rare White Blood Cells [facility] Gram Stain No Organism Seen [facility] Abscess (Abscess (site in comments)) 02/11/2017 6:14 PM ASSET PROTECTION MANAGER 02/11/2017 6:32 PM ASSET PROTECTION MANAGER Narrative [facility] - 02/14/2017 10:44 AM ASSET PROTECTION MANAGER Surgical incision site on patient's scalp Specimen Type->Abscess Specimen Source->Abscess (must specify site in comments) Resulting Lab: ?? [facility] MICROBIOLOG[facility] [address] [place] [address] PH: [phone] Organism Antibiotic Method Susceptibility Gram-negative bacilli Amikacin SUSCEPTIBILITY <=2 mcg/ml: Sensitive Gram-negative bacilli Cefazolin SUSCEPTIBILITY 8 mcg/ml: Sensitive Gram-negative bacilli Cefepime SUSCEPTIBILITY <=1 mcg/ml: Sensitive Gram-negative bacilli Ceftriaxone SUSCEPTIBILITY <=1 mcg/ml: Sensitive Gram-negative bacilli Ciprofloxacin SUSCEPTIBILITY <=0.25 mcg/ml: Sensitive Gram-negative bacilli Gentamicin SUSCEPTIBILITY <=1 mcg/ml: Sensitive Gram-negative bacilli Imipenem SUSCEPTIBILITY <=0.25 mcg/ml: Sensitive Gram-negative bacilli Levofloxacin SUSCEPTIBILITY <=0.12 mcg/ml: Sensitive Gram-negative bacilli Piperacillin-tazobactam SUSCEPTIBILITY <=4 mcg/ml: Sensitive Gram-negative bacilli Tobramycin SUSCEPTIBILITY <=1 mcg/ml: Sensitive Gram-negative bacilli Trimethoprim-sulfamethoxa zole SUSCEPTIBILITY <=20 mcg/ml: Sensitive Aurelia Chambers MD LAB - MICROBIOL OGY ORDERABLES Performing Organization Address [facility] [place] [address], [facility] [phone] * CULTURE BLOOD (02/11/2017 3:42 PM ASSET PROTECTION MANAGER) Only the most recent of2 resultswithin the time period is included. Culture Blood No Growth at 5 days [facility] Blood specimen (specimen) (Venous, Peripheral) 02/11/2017 3:42 PM ASSET PROTECTION MANAGER 02/11/2017 3:46 PM ASSET PROTECTION MANAGER Narrative [facility] - 02/16/2017 8:00 PM ASSET PROTECTION MANAGER Draw 15 minutes after Culture 1 from a different site Resulting Lab: ?? [facility] MICROBIOLOGY [address] [place] [address] PH: [phone] Aurelia Chambers MD LAB - MICROBIOL OGY ORDERABLES Performing Organization Address [facility] [place] [address], [facility] [phone] * (ABNORMAL) CBC W AUTO DIFFERENTIAL (02/11/2017 3:41 PM ASSET PROTECTION MANAGER) Only the most recent of12 resultswithin the time period is included. WBC 14.8(H) 3.5 - 10.5 10? 3 /uL [facility] RBC 4.38 4.30 - 5.70 10? 6 /uL [facility] Hemoglobin 12.2(L) 13.5 - 17.5 g/dL [facility] Hematocrit 37.1(L) 39.0 - 50.0 % [facility] MCV 84.7 81.0 - 97.0 fL [facility] MCH 27.9(L) 28.0 - 34.0 pg [facility] MCHC 32.9 32.0 - 36.0 g/dL [facility] Platelet Count 504(H) 150 - 400 10? 3 /uL [facility] Comment:Results are confirme d by repeat analysis. RDW-SD 38.4 36.0 - 50.0 fL [facility] RDW-CV 12.5 11.2 - 14.8 % [facility] MPV 8.5(L) 9.3 - 12.8 fL [facility] nRBC Absolute 0.00 0 10? 3 /uL [facility] nRBC Auto 0.0 0 /100 WBC [facility] Neutrophils % 78.2(H) 35.0 - 70.0 % [facility] Lymphocytes % 12.3(L) 19.7 - 55.1 % [facility] Monocytes % 7.5 3.0 - 15.0 % [facility] Eosinophils % 1.8 0.0 - 6.0 % [facility] Basophil % 0.2 0.0 - 1.5 % [facility] Neutrophils Absolute 11.5(H) 1.6 - 7.0 10? 3 /uL [facility] Lymphocyte Absolute 1.8 0.8 - 2.9 10? 3 /uL [facility] Monocytes Absolute 1.10(H) 0.14 - 0.66 10? 3 /uL [facility] Eosinophils Absolute 0.27(H) 0.00 - 0.22 10? 3 /uL [facility] Basophils Absolute 0.03 0.00 - 0.06 10? 3 /uL [facility] Immature Granulocytes % 1.5(H) 0.0 - 1.0 % [facility] Blood specimen (specimen) BLOOD SPECIMEN / Unknown 02/11/2017 3:41 PM ASSET PROTECTION MANAGER 02/11/2017 3:46 PM ASSET PROTECTION MANAGER Aurelia Chambers MD LAB - HEMATOLOG Y ORDERABLES Performing Organization Address City/[facility]/ZIP Co de Phone Number [address] [phone] * BASIC METABOLIC PANEL (CALCIUM TOTAL) (02/11/2017 3:41 PM ASSET PROTECTION MANAGER) Only the most recent of7 resultswithin the time period is included. BUN 10 7 - 26 mg/dL [facility] Creatinine 0.7 0.6 - 1.2 mg/dL [facility] Sodium 138 136 - 145 mmol/L [facility] Potassium 3.8 3.5 - 4.5 mmol/L [facility] Chloride 101 98 - 107 mmol/L [facility] CO2 27 22 - 29 mmol/L [facility] Glucose 98 70 - 115 mg/dL [facility] Calcium 9.6 8.4 - 10.2 mg/dL [facility] Anion Gap 14 8 - 18 [facility] BUN/Creatinine Ratio 14 7 - 23 [facility] Osmolality Calculated 285 270 - 300 mOsm/kg [facility] eGFR >60 >60 mL/min/1.7 3 m2 [facility] Blood specimen (specimen) BLOOD SPECIMEN / Unknown 02/11/2017 3:41 PM ASSET PROTECTION MANAGER 02/11/2017 3:46 PM ASSET PROTECTION MANAGER Aurelia Chambers MD LAB - CHEMISTRY ORDERABLES Performing Organization Address [facility] Co de Phone Number [address] [phone] * XR CHEST 1VW PORTABLE (02/07/2017 5:45 AM ASSET PROTECTION MANAGER) Only the most recent of3 resultswithin the time period is included. Anatomical Region Laterality Modality Chest Other Impressions 02/07/2017 12:25 PM ASSET PROTECTION MANAGER IMPRESSION: Increased interstitial markings are likely secondary to low lung volumes and hypoventilation. Mild basilar opacities represent airspace disease and/or atelectasis. No pleural effusion or pneumothorax is identified. The cardiomediastinal silhouette is normal. The visible bony thorax is intact. Dictated by Richard Dobson MD (residential sales representative). Dr. ROBYN Maldonado M.D. have personally reviewed and interpreted this examination/study. This report was electronically signed by ROBYN MARTINEZ M.D. ??on 02/07/2017 12:25 PM . Narrative 02/07/2017 12:25 PM ASSET PROTECTION MANAGER EXAMINATION: PX CHEST 1 VW HISTORY: 17-year-old male with poor O2 saturation. COMPARISON: AP portable chest dated 02/03/2017. FINDINGS/ Procedure Note Robyn Martinez MD - 05/16/2017 EXAMINATION: PX CHEST 1 VW HISTORY: 17-year-old male with poor O2 saturation. COMPARISON: AP portable chest dated 02/03/2017. FINDINGS/ IMPRESSION IMPRESSION: Increased interstitial markings are likely secondary to low lung volumesand hypoventilation. Mild basilar opacities represent airspace diseaseand/or atelectasis. No pleural effusion or pneumothorax is identified. Thecardiomediastinal silhouette is normal. The visible bony thorax is intact. Dictated by Richard Dobson MD (residential sales representative). Dr. ROBYN Maldonado M.D. have personally reviewed and interpretedthis examination/study. This report was electronically signed by ROBYN MARTINEZ M.D. on02/07/2017 12:25 PM . Jose Daniel Brown MD DIAGNOSTIC IMAGING O RDERABLES * (ABNORMAL) DIFFERENTIAL MANUAL (02/06/2017 4:15 AM ASSET PROTECTION MANAGER) Only the most recent of5 resultswithin the time period is included. WBC (corrected for NRBC) 14.9 10? 3 /uL [facility] Total Cell Count 100 [facility] Neutrophils Absolute Manual 12.07(H) 1.60 - 7.00 10? 3 /uL [facility] Comment:(BANDS+SEGS) x WBC = NEUT # (ANC) Lymphocyte Absolute Manual 1.79 0.80 - 2.90 10? 3 /uL [facility] Monocytes Absolute Manual 1.04(H) 0.14 - 0.66 10? 3 /uL [facility] Band % Manual 4 0 - 10 % [facility] Neutrophil % Manual 77(H) 30 - 60 % [facility] Lymphocyte % Manual 12(L) 20 - 45 % [facility] Monocytes % Manual 7 2 - 10 % [facility] Platelet Estimate Adequate Adequate [facility] RBC Morphology Normal [facility] Blood specimen (specimen) BLOOD SPECIMEN / Unknown 02/06/2017 4:15 AM ASSET PROTECTION MANAGER 02/06/2017 4:25 AM ASSET PROTECTION MANAGER Jose Daniel Brown MD LAB - HEMATOLOGY WISAM BARILLAS Performing Organization Address [facility]/ZIP Co de Phone Number [address] [phone] * PHOSPHORUS BLOOD (02/06/2017 4:15 AM ASSET PROTECTION MANAGER) Only the most recent of5 resultswithin the time period is included. Phosphorus 3.3 2.3 - 4.7 mg/dL [facility] Comment:Confirmed by repeat analysis. Blood specimen (specimen) BLOOD SPECIMEN / Unknown 02/06/2017 4:15 AM ASSET PROTECTION MANAGER 02/06/2017 4:25 AM ASSET PROTECTION MANAGER Jose Daniel Brown MD LAB - CHEMISTRY JESSIE SIMPSON Performing Organization Address [facility] Co de Phone Number [address] [phone] * MAGNESIUM BLOOD (02/06/2017 4:15 AM ASSET PROTECTION MANAGER) Only the most recent of5 resultswithin the time period is included. Magnesium 1.8 1.6 - 2.6 mg/dL [facility] Blood specimen (specimen) BLOOD SPECIMEN / Unknown 02/06/2017 4:15 AM ASSET PROTECTION MANAGER 02/06/2017 4:25 AM ASSET PROTECTION MANAGER Jose Daniel Brown MD LAB - CHEMISTRY JESSIE SIMPSON Performing Organization Address [facility] Co de Phone Number [address] [phone] * XR THORACIC SPINE 1VW (02/05/2017 12:28 PM ASSET PROTECTION MANAGER) Anatomical Region Laterality Modality Spine Other Impressions 02/06/2017 5:31 PM ASSET PROTECTION MANAGER IMPRESSION: 3 lateral views are received. There is no subluxation. Fractures of the T8 and T10 vertebral bodies are again demonstrated without further height loss. Left transverse process fractures at T7-T10 are not visible. Dictated by Richard Dobson MD (residential sales representative). Dr. ILEANA Maldonado M.D. have personally reviewed and interpreted this examination/study. This report was electronically signed by ILEANA CANO M.D. ??on 02/06/2017 5:31 PM . Narrative 02/06/2017 5:31 PM ASSET PROTECTION MANAGER EXAMINATION: XR SPINE THORACIC 1 VIEW HISTORY: Inadequate Lateral COMPARISON: Thoracic spine 2 views dated 02/04/2017 FINDINGS/ Procedure Note Ileana Cano MD - 05/16/2017 EXAMINATION: XR SPINE THORACIC 1 VIEW HISTORY: Inadequate Lateral COMPARISON: Thoracic spine 2 views dated 02/04/2017 FINDINGS/ IMPRESSION IMPRESSION: 3 lateral views are received. There is no subluxation. Fractures of the T8and T10 vertebral bodies are again demonstrated without further heightloss. Left transverse process fractures at T7-T10 are not visible. Dictated by Richard Dobson MD (residential sales representative). Dr. ILEANA Maldonado M.D. have personally reviewed and interpreted thisexamination/study. This report was electronically signed by ILEANA CANO M.D. on 02/06/20175:31 PM . Jose Daniel Brown MD DIAGNOSTIC IMAGING O RDERABLES * (ABNORMAL) CBC W/O DIFFERENTIAL (02/03/2017 8:15 AM ASSET PROTECTION MANAGER) WBC 22.7(H) 3.5 - 10.5 10? 3 /uL [facility] RBC 4.67 4.30 - 5.70 10? 6 /uL [facility] Hemoglobin 13.3(L) 13.5 - 17.5 g/dL [facility] Hematocrit 39.1 39.0 - 50.0 % [facility] MCV 83.7 81.0 - 97.0 fL [facility] MCH 28.5 28.0 - 34.0 pg [facility] MCHC 34.0 32.0 - 36.0 g/dL [facility] Platelet Count 209 150 - 400 10? 3 /uL [facility] RDW-SD 38.8 36.0 - 50.0 fL [facility] RDW-CV 12.8 11.2 - 14.8 % [facility] MPV 9.9 9.3 - 12.8 fL [facility] Blood specimen (specimen) BLOOD SPECIMEN / Unknown 02/03/2017 8:15 AM ASSET PROTECTION MANAGER 02/03/2017 8:25 AM ASSET PROTECTION MANAGER Jose Daniel Brown MD LAB - HEMATOLOGY ORD ERABLES [address] [phone] * (ABNORMAL) CALCIUM IONIZED WHOLE BLOOD (02/03/2017 8:15 AM ASSET PROTECTION MANAGER) Ionized Calcium Whole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 maxillofacial bones,orbits, and paranasal sinuses was performed without contrast according tostandard protocol. Reformatted axial, sagittal, and coronal images of thethoracic and lumbar spine were obtained by the technologist from a concurrently performed body CT andsent to the workstation for review. FINDINGS: Head: A large scalp laceration and degloving type of injury extend from theright frontal scalp across the vertex to the left posterior parietalscalp, with air and innumerable foreign objects and debris beneath thegalea against the cranium. A large skin flap is noted lifted off the skull. No acute intra- or extra-axial fluid collections are identified. Theventricles are of normal size, shape, and morphology. The basilar cisternsare patent. No mass effect or midline shift is seen. The stack-white matterdifferentiation is normal. Maxillofacial: Other than an old left lamina papyracea fracture, the orbits appearnormal. Orbital floor and the lamina papyracea are seen, associated withextraconal hemorrhage and gas. The extraocular muscles appear to be normalin size and density. Left periorbital soft tissue swelling is noted. The globes are intact. The optic nerves areintact. The globes are unconjugated. Multiple punctate radiopaque foreignbodies are seen on the face and in the upper inner the hips. Hemorrhage isnoted in the left maxillary sinus and left ethmoid air cells. The hard palate, mandible, andtemporomandibular joints appear normal. The mastoid air cells are clear. Cervical spine: The study is degraded by motion artifacts. There is a bone fragment adjacent to the medial aspect of the rightoccipital condyle, likely representing a type III avulsion fracture atthe attachment of the right alar ligament. The alignment is normal. Vertebral bodies are normal in height withoutevidence of acute fracture. The craniocervical junction is normal. Theintervertebral discs appear normal. No central canal stenosis is seen. Thefacets appear normal. The uncovertebral joints appear normal. No neural foraminal stenosis is seen.No soft tissue abnormality is identified. IMPRESSION IMPRESSION: 1. No acute intracranial process. 2. Extensive scalp laceration and degloving injury with innumerableradiopaque foreign bodies in the wound as described above. 3. Comminuted fractures of the left lamina papyracea and left orbitalfloor with a small amount of the gas and the hemorrhage in the extraconalspace. 4. Type III a avulsion fracture of the right occipital condyle, likely atthe attachment site of the right alar ligament. 5. No acute fracture or dislocation in the cervical spine. The preliminary findings have been discussed with Dr. Aguilar at 6:43 PM on02/02/[address] De. This report was electronically signed by ANUPAM CERVANTES M.D. on 02/03/20177:57 AM . Kirt Aguilar MD CT ORDERABLES * CT FACIAL BONES WO CONTRAST (02/02/2017 6:28 PM ASSET PROTECTION MANAGER) Anatomical Region Laterality Modality Head Other Impressions 02/03/2017 7:57 AM ASSET PROTECTION MANAGER IMPRESSION: 1. No acute intracranial process. 2. Extensive scalp laceration and degloving injury with innumerable radiopaque foreign bodies in the wound as described above. 3. Comminuted fractures of the left lamina papyracea and left orbital floor with a small amount of the gas and the hemorrhage in the extraconal space. 4. Type III a avulsion fracture of the right occipital condyle, likely at the attachment site of the right alar ligament. 5. No acute fracture or dislocation in the cervical spine. The preliminary findings have been discussed with Dr. Aguilar at 6:43 PM on 02/02/[address] De. This report was electronically signed by ANUPAM CERVANTES M.D. ??on 02/03/2017 7:57 AM . Narrative 02/03/2017 7:57 AM ASSET PROTECTION MANAGER EXAMINATION: 1. Computed tomography (CT) of the head without contrast 2. CT of the maxillofacial bones, orbits, and paranasal sinuses without contrast 3. CT of the cervical spine without contrast HISTORY: Trauma TECHNIQUE: CT of the head, cervical spine, and maxillofacial bones, orbits, and paranasal sinuses was performed without contrast according to standard protocol. Reformatted axial, sagittal, and coronal images of the thoracic and lumbar spine were obtained by the technologist from a concurrently performed body CT and sent to the workstation for review. FINDINGS: Head: A large scalp laceration and degloving type of injury extend from the right frontal scalp across the vertex to the left posterior parietal scalp, with air and innumerable foreign objects and debris beneath the galea against the cranium. A large skin flap is noted lifted off the skull. No acute intra- or extra-axial fluid collections are identified. The ventricles are of normal size, shape, and morphology. The basilar cisterns are patent. No mass effect or midline shift is seen. The stack-white matter differentiation is normal. Maxillofacial: Other than an old left lamina papyracea fracture, the orbits appear normal. Orbital floor and the lamina papyracea are seen, associated with extraconal hemorrhage and gas. The extraocular muscles appear to be normal in size and density. Left periorbital soft tissue swelling is noted. The globes are intact. The optic nerves are intact. The globes are unconjugated. Multiple punctate radiopaque foreign bodies are seen on the face and in the upper inner the hips. Hemorrhage is noted in the left maxillary sinus and left ethmoid air cells. The hard palate, mandible, and temporomandibular joints appear normal. The mastoid air cells are clear. Cervical spine: The study is degraded by motion artifacts. There is a bone fragment adjacent to the medial aspect of the right occipital condyle, likely representing a type III ??avulsion fracture at the attachment of the right alar ligament. The alignment is normal. Vertebral bodies are normal in height without evidence of acute fracture. The craniocervical junction is normal. The intervertebral discs appear normal. No central canal stenosis is seen. The facets appear normal. The uncovertebral joints appear normal. No neural foraminal stenosis is seen. No soft tissue abnormality is identified. Procedure Note Anupam Cervantes MD - 05/16/2017 EXAMINATION: 1. Computed tomography (CT) of the head without contrast 2. CT of the maxillofacial bones, orbits, and paranasal sinuses withoutcontrast 3. CT of the cervical spine without contrast HISTORY: Trauma TECHNIQUE: CT of the head, cervical spine, and maxillofacial bones,orbits, and paranasal sinuses was performed without contrast according tostandard protocol. Reformatted axial, sagittal, and coronal images of thethoracic and lumbar spine were obtained by the technologist from a concurrently performed body CT andsent to the workstation for review. FINDINGS: Head: A large scalp laceration and degloving type of injury extend from theright frontal scalp across the vertex to the left posterior parietalscalp, with air and innumerable foreign objects and debris beneath thegalea against the cranium. A large skin flap is noted lifted off the skull. No acute intra- or extra-axial fluid collections are identified. Theventricles are of normal size, shape, and morphology. The basilar cisternsare patent. No mass effect or midline shift is seen. The stack-white matterdifferentiation is normal. Maxillofacial: Other than an old left lamina papyracea fracture, the orbits appearnormal. Orbital floor and the lamina papyracea are seen, associated withextraconal hemorrhage and gas. The extraocular muscles appear to be normalin size and density. Left periorbital soft tissue swelling is noted. The globes are intact. The optic nerves areintact. The globes are unconjugated. Multiple punctate radiopaque foreignbodies are seen on the face and in the upper inner the hips. Hemorrhage isnoted in the left maxillary sinus and left ethmoid air cells. The hard palate, mandible, andtemporomandibular joints appear normal. The mastoid air cells are clear. Cervical spine: The study is degraded by motion artifacts. There is a bone fragment adjacent to the medial aspect of the rightoccipital condyle, likely representing a type III avulsion fracture atthe attachment of the right alar ligament. The alignment is normal. Vertebral bodies are normal in height withoutevidence of acute fracture. The craniocervical junction is normal. Theintervertebral discs appear normal. No central canal stenosis is seen. Thefacets appear normal. The uncovertebral joints appear normal. No neural foraminal stenosis is seen.No soft tissue abnormality is identified. IMPRESSION IMPRESSION: 1. No acute intracranial process. 2. Extensive scalp laceration and degloving injury with innumerableradiopaque foreign bodies in the wound as described above. 3. Comminuted fractures of the left lamina papyracea and left orbitalfloor with a small amount of the gas and the hemorrhage in the extraconalspace. 4. Type III a avulsion fracture of the right occipital condyle, likely atthe attachment site of the right alar ligament. 5. No acute fracture or dislocation in the cervical spine. The preliminary findings have been discussed with Dr. Aguilar at 6:43 PM on02/02/[address] De. This report was electronically signed by ANUPAM CERVANTES M.D. on 02/03/20177:57 AM . Kirt Aguilar MD CT ORDERABLES * CT HEAD WO CONTRAST (02/02/2017 6:28 PM ASSET PROTECTION MANAGER) Anatomical Region Laterality Modality Head Other Impressions 02/03/2017 7:57 AM ASSET PROTECTION MANAGER IMPRESSION: 1. No acute intracranial process. 2. Extensive scalp laceration and degloving injury with innumerable radiopaque foreign bodies in the wound as described above. 3. Comminuted fractures of the left lamina papyracea and left orbital floor with a small amount of the gas and the hemorrhage in the extraconal space. 4. Type III a avulsion fracture of the right occipital condyle, likely at the attachment site of the right alar ligament. 5. No acute fracture or dislocation in the cervical spine. The preliminary findings have been discussed with Dr. Aguilar at 6:43 PM on 02/02/[address] De. This report was electronically signed by ANUPAM CERVANTES M.D. ??on 02/03/2017 7:57 AM . Narrative 02/03/2017 7:57 AM ASSET PROTECTION MANAGER EXAMINATION: 1. Computed tomography (CT) of the head without contrast 2. CT of the maxillofacial bones, orbits, and paranasal sinuses without contrast 3. CT of the cervical spine without contrast HISTORY: Trauma TECHNIQUE: CT of the head, cervical spine, and maxillofacial bones, orbits, and paranasal sinuses was performed without contrast according to standard protocol. Reformatted axial, sagittal, and coronal images of the thoracic and lumbar spine were obtained by the technologist from a concurrently performed body CT and sent to the workstation for review. FINDINGS: Head: A large scalp laceration and degloving type of injury extend from the right frontal scalp across the vertex to the left posterior parietal scalp, with air and innumerable foreign objects and debris beneath the galea against the cranium. A large skin flap is noted lifted off the skull. No acute intra- or extra-axial fluid collections are identified. The ventricles are of normal size, shape, and morphology. The basilar cisterns are patent. No mass effect or midline shift is seen. The stack-white matter differentiation is normal. Maxillofacial: Other than an old left lamina papyracea fracture, the orbits appear normal. Orbital floor and the lamina papyracea are seen, associated with extraconal hemorrhage and gas. The extraocular muscles appear to be normal in size and density. Left periorbital soft tissue swelling is noted. The globes are intact. The optic nerves are intact. The globes are unconjugated. Multiple punctate radiopaque foreign bodies are seen on the face and in the upper inner the hips. Hemorrhage is noted in the left maxillary sinus and left ethmoid air cells. The hard palate, mandible, and temporomandibular joints appear normal. The mastoid air cells are clear. Cervical spine: The study is degraded by motion artifacts. There is a bone fragment adjacent to the medial aspect of the right occipital condyle, likely representing a type III ??avulsion fracture at the attachment of the right alar ligament. The alignment is normal. Vertebral bodies are normal in height without evidence of acute fracture. The craniocervical junction is normal. The intervertebral discs appear normal. No central canal stenosis is seen. The facets appear normal. The uncovertebral joints appear normal. No neural foraminal stenosis is seen. No soft tissue abnormality is identified. Procedure Note Anupam Cervantes MD - 05/16/2017 EXAMINATION: 1. Computed tomography (CT) of the head without contrast 2. CT of the maxillofacial bones, orbits, and paranasal sinuses withoutcontrast 3. CT of the cervical spine without contrast HISTORY: Trauma TECHNIQUE: CT of the head, cervical spine, and maxillofacial bones,orbits, and paranasal sinuses was performed without contrast according tostandard protocol. Reformatted axial, sagittal, and coronal images of thethoracic and lumbar spine were obtained by the technologist from a concurrently performed body CT andsent to the workstation for review. FINDINGS: Head: A large scalp laceration and degloving type of injury extend from theright frontal scalp across the vertex to the left posterior parietalscalp, with air and innumerable foreign objects and debris beneath thegalea against the cranium. A large skin flap is noted lifted off the skull. No acute intra- or extra-axial fluid collections are identified. Theventricles are of normal size, shape, and morphology. The basilar cisternsare patent. No mass effect or midline shift is seen. The stack-white matterdifferentiation is normal. Maxillofacial: Other than an old left lamina papyracea fracture, the orbits appearnormal. Orbital floor and the lamina papyracea are seen, associated withextraconal hemorrhage and gas. The extraocular muscles appear to be normalin size and density. Left periorbital soft tissue swelling is noted. The globes are intact. The optic nerves areintact. The globes are unconjugated. Multiple punctate radiopaque foreignbodies are seen on the face and in the upper inner the hips. Hemorrhage isnoted in the left maxillary sinus and left ethmoid air cells. The hard palate, mandible, andtemporomandibular joints appear normal. The mastoid air cells are clear. Cervical spine: The study is degraded by motion artifacts. There is a bone fragment adjacent to the medial aspect of the rightoccipital condyle, likely representing a type III avulsion fracture atthe attachment of the right alar ligament. The alignment is normal. Vertebral bodies are normal in height withoutevidence of acute fracture. The craniocervical junction is normal. Theintervertebral discs appear normal. No central canal stenosis is seen. Thefacets appear normal. The uncovertebral joints appear normal. No neural foraminal stenosis is seen.No soft tissue abnormality is identified. IMPRESSION IMPRESSION: 1. No acute intracranial process. 2. Extensive scalp laceration and degloving injury with innumerableradiopaque foreign bodies in the wound as described above. 3. Comminuted fractures of the left lamina papyracea and left orbitalfloor with a small amount of the gas and the hemorrhage in the extraconalspace. 4. Type III a avulsion fracture of the right occipital condyle, likely atthe attachment site of the right alar ligament. 5. No acute fracture or dislocation in the cervical spine. The preliminary findings have been discussed with Dr. Aguilar at 6:43 PM on02/02/[address] De. This report was electronically signed by ANUPAM CERVANTES M.D. on 02/03/20177:57 AM . Kirt Aguilar MD CT ORDERABLES * TYPE + SCREEN PANEL (02/02/2017 6:02 PM ASSET PROTECTION MANAGER) Typem A POS [facility] Antibody Screen NEG [facility] Blood specimen (specimen) BLOOD SPECIMEN / Unknown 02/02/2017 6:02 PM ASSET PROTECTION MANAGER 02/02/2017 6:05 PM ASSET PROTECTION MANAGER Kirt Aguilar MD LAB - BLOOD BANK ORD ERABLES [facility] [address] [place] [address], [facility] * XR PELVIS 1 OR 2VW (02/02/2017 5:57 PM ASSET PROTECTION MANAGER) Anatomical Region Laterality Modality Pelvis Other Impressions 02/03/2017 4:22 PM ASSET PROTECTION MANAGER IMPRESSION: No acute fracture identified. This report was dictated by Stew De M.D. (residential sales representative). Dr. ILEANA Maldonado M.D. have personally reviewed and interpreted this examination/study. This report was electronically signed by ILEANA CANO M.D. ??on 02/03/2017 4:22 PM . Narrative 02/03/2017 4:22 PM ASSET PROTECTION MANAGER EXAMINATION: AP view radiograph of the pelvis HISTORY: Trauma COMPARISON: No prior study is available for comparison. FINDINGS: No acute fracture is identified. The femoral heads appear well-seated within their respective acetabula without significant joint space narrowing. Small bone island is seen in the right femoral neck. ??The pubic symphysis is intact. No focal destructive osseous processes are identified. The sacroiliac joints are normal. Procedure Note Ileana Cano MD - 05/16/2017 EXAMINATION: AP view radiograph of the pelvis HISTORY: Trauma COMPARISON: No prior study is available for comparison. FINDINGS: No acute fracture is identified. The femoral heads appear well-seatedwithin their respective acetabula without significant joint spacenarrowing. Small bone island is seen in the right femoral neck. The pubicsymphysis is intact. No focal destructive osseous processes are identified. The sacroiliac joints are normal. IMPRESSION IMPRESSION: No acute fracture identified. This report was dictated by Stew De M.D. (residential sales representative). Dr. ILEANA Maldonado M.D. have personally reviewed and interpreted thisexamination/study. This report was electronically signed by ILEANA CANO M.D. on 02/03/20174:22 PM . Kirt Aguilar MD DIAGNOSTIC IMAGING O RDERABLES * PTT U (02/02/2017 5:48 PM ASSET PROTECTION MANAGER) APTT 27.1 23.0 - 38.4 Seconds [facility] Comment:Suggested therapeuti c range for full dose I.V. heparin therapy for venous thromboembolism is 66.0-91.0 seconds. Blood specimen (specimen) BLOOD SPECIMEN / Unknown 02/02/2017 5:48 PM ASSET PROTECTION MANAGER 02/02/2017 5:52 PM ASSET PROTECTION MANAGER Narrative [facility] - 02/02/2017 6:08 PM ASSET PROTECTION MANAGER Please ensure that the aPTT specimen is received in the clinical lab within 1 hour of collection if it is used for therapeutic heparin monitoring. Processing of heparinized specimens older than 1 hour may result in inaccurate test results. Is patient on Heparin, Argatroban or Dabigatran?->N Kirt Aguilar MD LAB - COAGULATION OR DERABLES Performing Organization Address [facility] Co de Phone Number [address] [phone] * PT-INR U (02/02/2017 5:48 PM ASSET PROTECTION MANAGER) PT 13.7 12.1 - 14.8 Seconds [facility] INR 1.1 See Comment [facility] Comment: Suggested therapeutic range for low-intensity coumadin therapy for venous thromboembolism prophylaxis is an INR of 2.0-3.0. ??For high risk patients (Mitral Valve Prosthesis, Atrial Fibrillation, history of TIA/stroke), suggested prophylactic therapeutic range is an INR of 2.5-3.5. Blood specimen (specimen) BLOOD SPECIMEN / Unknown 02/02/2017 5:48 PM ASSET PROTECTION MANAGER 02/02/2017 5:52 PM ASSET PROTECTION MANAGER Narrative [facility] - 02/02/2017 6:07 PM ASSET PROTECTION MANAGER Is patient on Heparin, Argatroban or Dabigatran?->N Kirt Aguilar MD LAB - COAGULATION OR DERABLES Performing Organization Address [place]/[facility] Co de Phone Number [facility] [address] [place] [address] * (ABNORMAL) COMPREHENSIVE METABOLIC PANEL (02/02/2017 5:48 PM ASSET PROTECTION MANAGER) BUN 14 7 - 26 mg/dL [facility] Creatinine 1.2 0.6 - 1.2 mg/dL [facility] Sodium 141 136 - 145 mmol/L [facility] Potassium 4.1 3.5 - 4.5 mmol/L [facility] Chloride 105 98 - 107 mmol/L [facility] CO2 24 22 - 29 mmol/L [facility] Glucose 118(H) 70 - 115 mg/dL [facility] Calcium 8.9 8.4 - 10.2 mg/dL [facility] Protein Total 7.2 6.0 - 8.3 g/dL [facility] Albumin 3.6 3.4 - 5.0 g/dL [facility] Bilirubin Total 0.8 0.2 - 1.2 mg/dL [facility] Alkaline Phosphatase 104 40 - 150 Units/L [facility] ALT 68(H) 0 - 55 Units/L [facility] AST 61(H) 5 - 34 Units/L [facility] Anion Gap 16 8 - 18 [facility] BUN/Creatinine Ratio 12 7 - 23 [facility] Osmolality Calculated 294 270 - 300 mOsm/kg [facility] Albumin/Globulin Ratio 1.0(L) 1.1 - 2.3 [facility] eGFR >60 >60 mL/min/1.7 3 m2 [facility] Blood specimen (specimen) BLOOD SPECIMEN / Unknown 02/02/2017 5:48 PM ASSET PROTECTION MANAGER 02/02/2017 5:52 PM ASSET PROTECTION MANAGER Kirt Aguilar MD LAB - CHEMISTRY JESSIE SIMPSON [address] [phone] * LIPASE BLOOD (02/02/2017 5:48 PM ASSET PROTECTION MANAGER) Lipase 23 8 - 78 Units/L [facility] Blood specimen (specimen) BLOOD SPECIMEN / Unknown 02/02/2017 5:48 PM ASSET PROTECTION MANAGER 02/02/2017 5:52 PM ASSET PROTECTION MANAGER Kirt Aguilar MD LAB - [place] [address], [facility] [phone] * ALCOHOL ETHYL BLOOD (02/02/2017 5:48 PM ASSET PROTECTION MANAGER) Interpretation Ethanol None Detected None Detected mg/dL [facility] Comment:Ethanol levels less than 10 mg/dL are resulted as None detected . Blood specimen (specimen) BLOOD SPECIMEN / Unknown 02/02/2017 5:48 PM ASSET PROTECTION MANAGER 02/02/2017 5:52 PM ASSET PROTECTION MANAGER Kirt Aguilar MD LAB - CHEMISTRY JESSIE SIMPSON Performing Organization Address [facility] Co de Phone Number [address] [phone] * XR CHEST PA AND LATERAL(most commonly ordered) (05/12/2016 1:14 PM CDT) Only the most recent of4 resultswithin the time period is included. Anatomical Region Laterality Modality Chest Radiographic Dorothy ging 05/13/2016 7:08 AM CDT Impressions 05/13/2016 8:48 AM CDT 1. ??Mild bilateral central peribronchial wall thickening. 2. ??Bibasilar opacities. Dictated by Antonio Mays MD (Supervisor [place]). I, Ashanti Baker, have personally reviewed the images and I agree with this report. Narrative 05/13/2016 8:48 AM CDT EXAMINATION: Chest, 2 views, PA and lateral HISTORY: 16-year-old male with shortness of breath. COMPARISON: Comparison is made with a study from 08/28/2012. FINDINGS: Mild bilateral central peribronchial wall thickening is identified. The lungs are hypoinflated. Right middle and bilateral lower lobe opacities are seen. There is no evidence of pleural effusion or pneumothorax. The heart size is normal. The visible osseous structures are intact. Procedure Note Ashanti Baker MD - 05/13/2016 EXAMINATION: Chest, 2 views, PA and lateral HISTORY: 16-year-old male with shortness of breath. COMPARISON: Comparison is made with a study from 08/28/2012. FINDINGS: Mild bilateral central peribronchial wall thickening is identified. The lungs are hypoinflated. Right middle and bilateral lower lobe opacities are seen. There is no evidence of pleural effusion or pneumothorax. The heart size is normal. The visible osseous structures are intact. IMPRESSION 1. Mild bilateral central peribronchial wall thickening. 2. Bibasilar opacities. Dictated by Antonio Mays MD (Supervisor [place]). I, Ashanti Baker, have personally reviewed the images and I agree with this report. En Aguilar MD DIAGNOSTIC IMAGING O RDERABLES * ED CRITICAL CARE (02/01/2014 4:37 PM ASSET PROTECTION MANAGER) Narrative Regino Stephens MD - 02/01/2014 4:37 PM ASSET PROTECTION MANAGER Regino Stephens MD ? 02/01/2014 ??4:37 PM EMERGENCY DEPARTMENT 02/01/2014 Dear Doctor, We had the pleasure of caring for your patient, Michael Rebolledo in our emergency department on 02/01/2014. A note from the provider(s) who cared for your patient is attached. Should you wish to access any laboratory results, please call . ??Should you wish to access any radiology results, please call , option 3. In addition, you can access patient information 24 hours a day, from any computer, through [employer], the online version of our electronic medical record. ??If you would like to use this service, please call Ai Block, Connectivity Coordinator, at . We appreciate the opportunity to care for your patients. ??If you would like additional information, please call the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 Food and Drug Administration has not approved or cleared this test; however, FDA clearance or approval is not currently required for clinical use. The results are not intended to be used as the sole means for clinical diagnosis or patient management decisions. This test is performed pursuant to an agreement with [employer] Sputum specimen (specimen) SPECIMEN FROM NASOPHARYNGEAL STRUCTURE / Unknown 01/30/2011 7:45 AM ASSET PROTECTION MANAGER 01/30/2011 7:49 AM ASSET PROTECTION MANAGER Narrative Resulting Agency Comment Performed By [facility] ? [address] ? [place], [place] [address] La Herring MD LAB - MICROBIOLO GY ORDERABLES Performing Organization Address City/State/[facility] Co de Phone Number [facility] [address] [facility] [place] [address] * XR CHEST PA OR AP (01/30/2011 6:05 AM ASSET PROTECTION MANAGER) Anatomical Region Laterality Modality Chest Radiographic Dorothy ging 01/30/2011 8:17 AM ASSET PROTECTION MANAGER Impressions 01/30/2011 9:22 AM ASSET PROTECTION MANAGER Airway disease. Middle lobe and lingular opacities. D: Carroll Urias MD Narrative 01/30/2011 9:22 AM ASSET PROTECTION MANAGER Portable chest, AP view 01/30/2011 at 0605 hours Comparison is made with 11/05/2010 exam. There are bilateral perihilar infiltrates which extend to the medial lower lungs. No pleural effusion or pneumothorax is visible. The mediastinal silhouette is normal. The osseous structures are unremarkable. Procedure Note Ashanti Baker MD - 01/30/2011 Portable chest, AP view 01/30/2011 at 0605 hours Comparison is made with 11/05/2010 exam. There are bilateral perihilar infiltrates which extend to the medial lower lungs. No pleural effusion or pneumothorax is visible. The mediastinal silhouette is normal. The osseous structures are unremarkable. IMPRESSION Airway disease. Middle lobe and lingular opacities. D: Carroll Urias MD La Herring MD DIAGNOSTIC IMAGI NG ORDERABLES * IP CONSULT TO PEDIATRIC ALLERGY (11/06/2010 2:11 PM CDT) Narrative Nixon Sifuentes MD - 11/06/2010 2:11 PM CDT Nixon Sifuentes MD ? 11/06/2010 ??2:11 PM Allergy/Immunology Fellow Consult Note Date of Admission: 11/05/2010 Date of Consult: 11/05/10 Physician Requesting Consult: ??Christian Reason for Consult: asthma Chief Complaint/History of Present Illness: 10 y/o with a history of asthma admitted early this morning as OSH transfer for status asthmaticus. ??Last night he was experiencing coughing at home, and per ER notes passed out and had loss of bladder continence. ??Initially presented to [facility] and transferred to [facility]. ??In ER received continuous albuterol neb x2. ??CXR revealed mild reactive airway disease. ??Currently in TCU and receiving albuterol q2 nebs and prednisone 30mg BID His asthma is being treated at home with a combination of Pulmicort and Asmanex. ??He has a history of 2 hospitalizations for asthma. ??No PICU admissions or intubation. ??He has never been seen by Allergy or Pulmonary. ??Michael reports using albuterol twice daily. ??He has night symptoms several times a week and sleeps with an albuterol inhaler by his bed. ??Allergic rhintis is being treated with daily claritin. ??He reports on exposure to cats develops itchy, watery eyes. ??On exposure to cut grass develops increase in nasal symptoms. ?? Denies any hx of food allergy, AD, chronic urticaria/angioedema. PMHx: Asthma Allergic Rhinitis Outpatient Medications: Prescriptions prior to admission Medication Sig Dispense Refill ? ? amphetamine-dextroamphetamine (ADDERALL) 10 MG tablet Take 10 mg by mouth every morning. ? albuterol (PROVENTIL; VENTOLIN) 90 MCG/ACT inhaler Inhale 2 Puffs by mouth every 6 hours as needed. ? Current Facility-Administered Medications Medication Dose Route Frequency Provider Last Rate Last Dose ? ? albuterol (PROVENTIL;VENTOLIN) (5 MG/ML) 0.5% nebulizer solution 20 mg ??20 mg Inhalation Once Jr Tang MD ?? 20 mg at 11/05/10 0336 ? ? albuterol (PROVENTIL;VENTOLIN) (5 MG/ML) 0.5% nebulizer solution 5 mg ??5 mg Inhalation Once Tia Cui MD ?? 5 mg at 11/05/10 0626 ? ? 0.9% NaCl injection 2-10 mL ??2-10 mL Intracatheter PRN Holly Morel MD ?? 3 mL at 11/05/10 1145 ? ? predniSONE (DELTASONE) tablet 30 mg ??30 mg Oral BID Holly Morel MD ?? 30 mg at 11/05/10 1029 ? ? albuterol (PROVENTIL;VENTOLIN) (5 MG/ML) 0.5% nebulizer solution 5 mg ??5 mg Inhalation q2h Holly Morel MD ?? 5 mg at 11/05/10 1308 ? ? 0.9 % nacl IV BOLUS 1,000 mL ??1,000 mL Intravenous Once Tia Cui MD ?? 1,000 mL at 11/05/10 0818 ? ? albuterol (PROVENTIL;VENTOLIN) (5 MG/ML) 0.5% nebulizer solution 5 mg ??5 mg Inhalation Once Tia Cui MD ?? 5 mg at 11/05/10 0824 Medication Allergies: No Known Allergies PSHx: ??none Social Hx: ??No tobacco exposure Environmental Hx: ?? Lives in a house with central heat/air, dry basement. ??Dog lives in the house, but does not enter Michael's bedroom. ??Carpet throughout home. ??No tobacco exposure. FHx: Asthma Mother, siblings AR 0 AD 0 Urticaria 0 Food Allergy 0 SLE 0 RA 0 Thyroid 0 Leukemia 0 Lymphoma 0 IDS 0 Other ?? PE: Vitals: 11/05/10 0845 11/05/10 1030 11/05/10 1050 11/05/10 1136 BP: 104/33 ?? 103/40 Pulse: 130 ??132 140 Temp: 98.6 ??F ?? 96 ??F Resp: 22 ??20 28 Weight: ? SpO2: 96% 96% ??95% Gen: NAD Eyes: ??PERRL, EOMI, conjunctiva clear B with B allergic shiners. ENT: ??TM-clear B, nares - patent with pale, boggy nasal mucosa, OP-clear. Neck: ??Supple, FROM. ?? Thyroid: ??Normal size CV: ??RRR s m Resp: ??CTAB, no wheezes ABD: soft, NTND, no HSM Extr: no c/c/e Skin: no lesions/rashes Assessment and Recommendations: 10 with history of uncontrolled asthma admitted today with asthma exacerbation. --Recommend starting Advair 115/21mcg 2 puffs BID, singulair 5mg daily, and restarting home claritin --Continue orapred 30mg BID and spacing albuterol out to q4 hr treatments --Recommend checking Allergen Comprehensive Inhalent IgE panel --Asthma teaching and inhaler instruction per Respiratory Therapy prior to discharge --Would like Michael to f/u in Allergy & Immunology clinic 3-4 weeks after discharge Thank you for allowing us to participate in the care of your patient. Ruthann Valladares MD 11/05/2010 1:09 PM Attending Physician Supervisory Note I personally interviewed and examined the patient and agree with the doctor above. Nixon Sifuentes MD Procedure Note Nixon Sifuentes MD - 11/05/2010 1:09 PM CDT Allergy/Immunology Fellow Consult Note Date of Admission: 11/05/2010 Date of Consult: 11/05/10 Physician Requesting Consult: Christian Reason for Consult: asthma Chief Complaint/History of Present Illness: 10 y/o with a history of asthma admitted early this morning as OSHtransfer for status asthmaticus. Last night he was experiencing coughingat home, and per ER notes passed out and had loss of bladder continence.Initially presented to [facility] and transferred to [facility]. In ER received continuous albuterol neb x2. CXR revealed mildreactive airway disease. Currently in TCU and receiving albuterol q2 nebsand prednisone 30mg BID His asthma is being treated at home with a combination of Pulmicort andAsmanex. He has a history of 2 hospitalizations for asthma. No PICUadmissions or intubation. He has never been seen by Allergy or Pulmonary.Michael reports using albuterol twice daily. He has night symptomsseveral times a week and sleeps with an albuterol inhaler by his bed.Allergic rhintis is being treated with daily claritin. He reports onexposure to cats develops itchy, watery eyes. On exposure to cut grassdevelops increase in nasal symptoms. Denies any hx of food allergy, AD, chronic urticaria/angioedema. PMHx: Asthma Allergic Rhinitis Outpatient Medications: Prescriptions prior to admission Medication Sig Dispense Refill ? ? amphetamine-dextroamphetamine (ADDERALL) 10 MG tablet Take 10 mg bymouth every morning. ? ? albuterol (PROVENTIL; VENTOLIN) 90 MCG/ACT inhaler Inhale 2 Puffs bymouth every 6 hours as needed. Current Facility-Administered Medications Medication Dose Route Frequency Provider Last Rate Last Dose ? ? albuterol (PROVENTIL;VENTOLIN) (5 MG/ML) 0.5% nebulizer solution 20 mg20 mg Inhalation Once Jr Tang MD 20 mg at 11/05/10 0336 ? ? albuterol (PROVENTIL;VENTOLIN) (5 MG/ML) 0.5% nebulizer solution 5 mg 5mg Inhalation Once Tia Cui MD 5 mg at 11/05/10 0626 ? ? 0.9% NaCl injection 2-10 mL 2-10 mL Intracatheter PRN Holly Morel MD3 mL at 11/05/10 1145 ? ? predniSONE (DELTASONE) tablet 30 mg 30 mg Oral BID Holly Morel MD30 mg at 11/05/10 1029 ? ? albuterol (PROVENTIL;VENTOLIN) (5 MG/ML) 0.5% nebulizer solution 5 mg 5mg Inhalation q2h Holly Morel MD 5 mg at 11/05/10 1308 ? ? 0.9 % nacl IV BOLUS 1,000 mL 1,000 mL Intravenous Once Tia Javier MD 1,000 mL at 11/05/10 0818 ? ? albuterol (PROVENTIL;VENTOLIN) (5 MG/ML) 0.5% nebulizer solution 5 mg 5mg Inhalation Once Tia Cui MD 5 mg at 11/05/10 0824 Medication Allergies: No Known Allergies PSHx: none Social Hx: No tobacco exposure Environmental Hx: Lives in a house with central heat/air, dry basement. Dog lives in thehouse, but does not enter Michael's bedroom. Carpet throughout home. Notobacco exposure. FHx: Asthma Mother, siblings AR 0 AD 0 Urticaria 0 Food Allergy 0 SLE 0 RA 0 Thyroid 0 Leukemia 0 Lymphoma 0 IDS 0 Other PE: Vitals: 11/05/10 0845 11/05/10 1030 11/05/10 1050 11/05/10 1136 BP: 104/33 103/40 Pulse: 130 132 140 Temp: 98.6 ??F 96 ??F Resp: 22 20 28 Weight: SpO2: 96% 96% 95% Gen: NAD Eyes: PERRL, EOMI, conjunctiva clear B with B allergic shiners. ENT: TM-clear B, nares - patent with pale, boggy nasal mucosa,OP-clear. Neck: Supple, FROM. Thyroid: Normal size CV: RRR s m Resp: CTAB, no wheezes ABD: soft, NTND, no HSM Extr: no c/c/e Skin: no lesions/rashes Assessment and Recommendations: 10 with history of uncontrolled asthma admitted today with asthmaexacerbation. --Recommend starting Advair 115/21mcg 2 puffs BID, singulair 5mg daily,and restarting home claritin --Continue orapred 30mg BID and spacing albuterol out to q4 hrtreatments --Recommend checking Allergen Comprehensive Inhalent IgE panel --Asthma teaching and inhaler instruction per Respiratory Therapy prior todischarge --Would like Michael to f/u in Allergy & Immunology clinic 3-4 weeks afterdischarge Thank you for allowing us to participate in the care of your patient. Ruthann Valladares MD 11/05/2010 1:09 PM Attending Physician Supervisory Note I personally interviewed and examined the patient and agree with thedoctor above. Nixon Sifuentes MD Zoë Ku MD INPATIENT CONSULT OR DERABLES * (ABNORMAL) ALLERGEN INHALANT COMPREHENSIVE PROFILE (11/06/2010 4:00 AM CDT) Allergen Alternaria alternata 36.80(H) <=0.34 KU/L [facility] Allergen Hormodendrum 18.30(H) <=0.34 KU/L [facility] Allergen Aspergillus Fumigatus 7.03(H) <=0.34 KU/L [facility] Allergen P. Notatum 2.63(H) <=0.34 KU/L [facility] Alelrgen Cat Dander 3.64(H) <=0.34 KU/L [facility] Allergen Dog Dander 4.94(H) <=0.34 KU/L [facility] Allergen Dermatophagoides pteronyssinus 1.18(H) <=0.34 KU/L [facility] Allergen Dermatophagoides farinae 1.29(H) <=0.34 KU/L [facility] Allergen Vaishali Grass 11.50(H) <=0.34 KU/L [facility] Allergen Thomas Grass 5.66(H) <=0.34 KU/L [facility] Allergen Common Ragweed 5.16(H) <=0.34 KU/L [facility] Allergen [place] 5.06(H) <=0.34 KU/L [facility] Allergen Elm 11.30(H) <=0.34 KU/L [facility] Allergen Benedicta Tree 0.20 <=0.34 KU/L [facility] Allergen [place] Tree 5.29(H) <=0.34 KU/L [facility] Allergen Mower Tree 6.05(H) <=0.34 KU/L [facility] Allergen [place] 5.95(H) <=0.34 KU/L [facility] Allergen Cow Dander 0.15 <=0.34 KU/L [facility] Allergen Horse Dander 0.40(H) <=0.34 KU/L [facility] Allergen House Dust Alfaro 0.23 <=0.34 KU/L [facility] Allergen Dang's Quarters 1.27(H) <=0.34 KU/L [facility] Allergen Bermuda Grass 2.48(H) <=0.34 KU/L [facility] Allergen [place] Islander Plantain 12.30(H) <=0.34 KU/L [facility] Allergen Tomas Grass 4.59(H) <=0.34 KU/L [facility] Allergen Perennial Vis[place] Grass 6.59(H) <=0.34 KU/L [facility] Allergen Chadian Thistle 4.44(H) <=0.34 KU/L [facility] Allergen Mugwort 6.39(H) <=0.34 KU/L [facility] IgE Total 719(H) 0 - 120 IU/ml [facility] Immunocap Score KU/L [facility] Comment: REFERENCE INTERVAL: Allergen, Interpretation Less than 0.10 kU/L......No significant level detected 0.10-0.34 kU/L...........Clinical relevance undetermined 0.35-0.70 kU/L...........Low 0.71-3.50 kU/L...........Moderate 3.51-17.50 kU/L..........High 17.51 kU/L or Greater....Very High Allergen results of 0.10-0.34 kU/L are intended for specialist use as the clinical relevance is undetermined. Although increasing ranges are reflective of increasing concentrations of allergen-specific IgE, this may not correlate with the degree of clinical response or skin testing when challenged with a specific allergen. The correlation of allergy laboratory results with clinical history and in vivo reactivity to specific allergens is essential. A negative test may not rule out clinical allergy or even anaphylaxis. Comment Ref Lab [facility] Comment: TEST INFORMATION: Immunoglobulin E To convert to ng/mL, multiply IU/mL by 2.4. BLOOD SPECIMEN / Unknown 11/06/2010 4:00 AM CDT 11/06/2010 4:04 AM CDT Narrative [facility] - 11/09/2010 11:22 AM CDT 1 Resulting Agency Comment Performed By [employer] ? [address] ? [place], [place] [address] Zoë Ku MD LAB - SEROLOGY ORDER SUDHIR Performing Organization Address City/State/[facility] Co la Phone Number [facility] [address] [place] [address] Care Teams Service Desk Analyst Relationship Specialty Start Date End Date Bran Craven MD [address] [place] [address] PCP - General Internal Medicine 08/23/15
--- OUTSIDE RECORDS SUMMARY | 2024-03-11 10:00 | XMS_ITS | Clinical Summary ---
Author Organization [facility] [address] [facility] Address [address] [place] [address] Care Team Providers Care Lacemaker Name Role Phone Elmer King MD Primary Care Provider [phone] Allergies No known active allergies Medications budesonide-formot [...] by pMD. Adderall was held during hospitalization. Encounters Date Type Department Care Team Description 03/11/2024 [facility] Out[facility] Care [address] [address] Codi Gutiérrez MA 03/10/2024 [facility] Care [address] [address] Codi Gutiérrez MA 03/09/2024 [facility] Out[facility] [address] [address] Codi Gutiérrez MA 03/07/2024 9:32 AM PRISON PSYCHIATRIST - 03/07/2024 11:42 AM PRISON PSYCHIATRIST Emergency [facility] Emergency Department [address] [place] [address] Sandoval Carcamo MD Left ureteral stone (Primary Dx) Discharge Disposition: Discharge to home or self care from Last 3 Months Immunizations Name Administration Dates Next Due DTaP 06/19/2004, 1,1999,05/30,1999 Hep B, Adolescent or Pediatric 07/24/2000,1999,1999 Hib (PRP-D) 07/17/2000, 0,1999,03/29 IPV 06/19/2004, 0,1999,03/29 Influenza, Quadrivalent, Spl it, Preservative Free, Intramuscular 05/13/2016 Influenza, Trivalent, IM (MDV) 01/17/2012 Influenza, Unspecified 05/08/2023(Deferr ed: Patient Refused),10/18/2022(Deferred: Patient Refused),02/17/2021(Deferred: Patient Refused),02/18/2020(Deferred: Patient Refused),12/21/2007 MMR 06/19/2004,02/08/2000 Pneumococcal Conjugate, Unspecified 02/08/2000,0 1999,1999 Tdap 02/02/2017 Varicella 07/17/2000 Medical History Medical History Date Comments Asthma Social History Tobacco Use Types Packs/Day Years [...] on file Legal Sex Male 2:25 AM PRISON PSYCHIATRIST Gender Identity Not on file Sexual Orientation Not on file Obstetrics History Last Filed Vital Signs Vital Sign Reading Time Taken Comments Blood Pressure 120/82 03/07/2024 11:30 AM PRISON PSYCHIATRIST Pulse 58 03/07/2024 11:30 AM PRISON PSYCHIATRIST Temperature 36 ??C (96.8 ??F) 03/07/2024 9:26 AM PRISON PSYCHIATRIST Respiratory Rate 15 03/07/2024 11:30 AM PRISON PSYCHIATRIST Oxygen Saturation 94% 03/07/2024 11:30 AM PRISON PSYCHIATRIST Inhaled Oxygen Concentration - - Weight 103.4 kg (228 lb) 03/07/2024 9:27 AM PRISON PSYCHIATRIST Height 175.3 cm (5' 9 ) 09/11/2023 4:59 PM CDT Body Mass Index 33.67 09/11/2023 4:59 PM CDT Plan of Treatment Health Maintenance Due Date Last Done Comments Hepatitis C Screening 1999 Varicella Vaccines (2 of 2 - 2-dose childhood series) 2003 07/17/2000 Pneumococcal vaccine <65 (1 of 1 - PPSV23 or PCV20) 2005 02/08/2000, 1999, 1999 HPV Vaccines (1 - Male 3-dos e series) 2014 Influenza Vaccine (#1) 2023 7, 01/17/2012, 12/21/2007 Depression Screening 05/07/2024 05/08/2023, 01/22/2022, 06/29/2021 Regular Well Visit/Exam 18-64 05/07/2024 05/08/2023 DTaP/Tdap/Td Vaccine (7 - Td or Tdap) 02/02/2027 02/02/2017, 06/19/2004, 07/17/2000, Additional history exists Procedures Procedure Name Priority Date/Time Associated Diagnosis Comments URINALYSIS, MICROSCOPIC ONLY STAT 03/07/2024 10:56 AM PRISON PSYCHIATRIST URINALYSIS AND REFLEX TO MICROSCOPIC AND CULTURE STAT 03/07/2024 10:[address] ABDOMEN PELVIS W CONTRAST ED 03/07/2024 10:00 AM PRISON PSYCHIATRIST EGFR STAT 03/07/2024 9:31 AM PRISON PSYCHIATRIST DIFFERENTIAL AUTO STAT 03/07/2024 9:3 1 AM PRISON PSYCHIATRIST LIPASE STAT 03/07/2024 9:31 AM PRISON PSYCHIATRIST COMPREHENSIVE METABOLIC PANEL STAT 03/07/2024 9:31 AM PRISON PSYCHIATRIST CBC WITH AUTO DIFFERENTIAL STAT 03/07/2024 9:31 AM PRISON PSYCHIATRIST from Last 3 Months Results * (ABNORMAL) Urinalysis reflex to microscopic and culture Urine (03/07/2024 10:56 AM PRISON PSYCHIATRIST) Color, ur Yellow Yellow Clarity, ur Clear [...] tendency for uric acid stone formation. Source: [facility] Current Interpretive Data was last revised on 2017 Protein, ur ql Trace Negative [facility] ([place]) Glucose, ur ql Negative Negative [facility] ([place]) Ketones, ur Negative Negative [facility] ([place]) Bilirubin, ur Negative Negative [facility] ([place]) Blood, ur 2+(A) Negative [facility] ([place]) Urobilinogen, ur <2.0 <2.0 mg/dL [facility] ([place]) Nitrite, ur Negative Negative [facility] ([place]) Leukocyte esterase, ur Negative Negative [facility] ([place]) UA reflex comment Reflex to microscopic UA will be performed. [facility] ([place]) Urine 03/07/2024 10:5 6 AM PRISON PSYCHIATRIST 03/07/2024 10:57 AM PRISON PSYCHIATRIST us Sandoval Carcamo MD LAB MICROBIOLOGY - GENERAL O RDERABLES Final Result [facility] ([place]) [address] [facility] [place] [address] * (ABNORMAL) Urinalysis, microscopic only (03/07/2024 10:56 AM PRISON PSYCHIATRIST) WBC, ur 6-10(A) 0 - 5 /HPF RBC, ur >50(A) 0 - 2 /HPF [facility] ([place]) Epithelial cells, squamous, ur 1-5 0 - 5 /HPF [facility] ([place]) Mucous, ur Present(A) [facility] ([place]) Culture Reflex Comment Reflex conditions for urine culture (WBC >10) not met. [facility] ([place]) Urine 03/07/2024 10:5 6 AM PRISON PSYCHIATRIST 03/07/2024 10:57 AM PRISON PSYCHIATRIST us Sandoval Carcamo MD LAB URINE ORDERABLES Final R esult [facility] ([place] [address] [facility] [place] [address] * CT Abdomen Pelvis W Contrast (03/07/2024 10:00 AM PRISON PSYCHIATRIST) Anatomical Region Laterality Modality Body N/A Computed Tomogra phy 03/07/2024 10:3 4 AM PRISON PSYCHIATRIST Narrative 03/07/2024 10:37 AM PRISON PSYCHIATRIST EXAM DESCRIPTION: ?? CT ABDOMEN PELVIS W [...] AM T: ??03/07/2024 10:37 AM Report ID: [id number] Reading Location: ??[id number] Procedure Note Mello Conrad MD - 03/07/2024 [...] Mello Conrad M.D. JA: RADHA Report ID: [id number] Reading Location: [place] [address] Sandoval Carcamo MD IMG CT PROCEDURES Final Resu lt * eGFR (03/07/2024 9:31 AM PRISON PSYCHIATRIST) eGFR >90 >=60 mL/min/1. 73 m2 Comment: [...] last reviewed 2020. Blood 03/07/2024 9:31 AM PRISON PSYCHIATRIST 03/07/2024 9:35 AM PRISON PSYCHIATRIST us Sandoval Carcamo MD LAB BLOOD ORDERABLES Final R esult [facility] ([place] [address] [facility] [place] [address] * (ABNORMAL) Differential, auto (03/07/2024 9:31 AM PRISON PSYCHIATRIST) Neutrophil abs 12.3(H) 1.5 - 6.5 K/cumm Imm gran abs 0.1 0.0 - 0.1 K/cumm [facility] ([place]) Lymphocyte abs 1.4 0.8 - 3.3 K/cumm [facility] ([place]) Monocyte abs 0.9(H) 0.2 - 0.8 K/cumm [facility] ([place]) Eosinophil abs 0.1 0.0 - 0.5 K/cumm [facility] ([place]) Basophil abs 0.1 0.0 - 0.1 K/cumm [facility] ([place]) Neutrophil pct 82.9 % [facility] ([place]) Comment: Interpretive Data Percent cell count reference [...] revised on 2017. Monocyte pct 6.0 % [facility] ([place]) Comment: Interpretive Data Percent cell [...] revised on 2017. Blood 03/07/2024 9:31 AM PRISON PSYCHIATRIST 03/07/2024 9:35 AM PRISON PSYCHIATRIST us Sandoval Carcamo MD LAB BLOOD ORDERABLES Final R esult [facility] ([place]) [address] [facility] Department of Laboratories [place], [place] [id number] * (ABNORMAL) CBC with auto differential (03/07/2024 9:31 AM PRISON PSYCHIATRIST) WBC 14.8(H) 3.8 - 9.9 K/cumm Hgb 16.4 13.0 - 17.5 g/dL [facility] ([place]) Hct 48.1 38.9 - 50.3 % [...] NRBC abs 0.00 0.00 - 0.01 K/cumm [facility] ([place]) Blood (Blood, Venous) 03/07/2024 9:31 AM PRISON PSYCHIATRIST 03/07/2024 9:35 AM PRISON PSYCHIATRIST Sandoval Carcamo MD LAB BLOOD ORDERABLES Final R esult Performing Organization Address City/[facility] Co de Phone Number [facility] ([place]) [address] [facility] [place] [address] * Lipase (03/07/2024 9:31 AM PRISON PSYCHIATRIST) Lipase 38 10 - 99 Units/L Blood (Blood, Venous) 03/07/2024 9:31 AM PRISON PSYCHIATRIST 03/07/2024 9:35 AM PRISON PSYCHIATRIST Sandoval Carcamo MD LAB BLOOD ORDERABLES Final R esult Performing Organization Address City/[facility]/ZIP Co de Phone Number [facility] ([place]) [address] [facility] [place] [address] * (ABNORMAL) Comprehensive metabolic panel (03/07/2024 9:31 AM PRISON PSYCHIATRIST) Sodium 138 135 - 145 mmol/L Potassium, pl 4.1 3.3 - 4.9 mmol/L [facility]) Chloride 103 97 - 110 mmol/L [facility]) CO2 25 22 - 32 mmol/L [facility] ([place]) Anion gap 11 2 - 15 mmol/L [facility] ([place]) BUN 15 6 - 25 mg/dL [facility] ([place]) Creatinine 1.05 0.80 - 1.30 mg/dL [facility] ([place]) Glucose 116 70 - 199 mg/dL [facility] ([place]) Comment: Interpretive Data Fasting glucose >/= [...] classification and Diagnosis of Diabetes Diabetes Care 2021; 46: S19-S40. Current interpretive data was last [...] [facility]) Blood 03/07/2024 9:31 AM PRISON PSYCHIATRIST 03/07/2024 9:35 AM PRISON PSYCHIATRIST us Sandoval Carcamo MD LAB BLOOD ORDERABLES Final R esult [facility] ([place]) [address] [facility] [place] [address] from Last 3 Months Insurance [facility] [id number] [place] [address] [facility] Care Teams Lacemaker Relationship Specialty Start Date End Date [place] [address] PCP - General Family Medicine 06/29/21
== END 2024-03-07 08:58 | disposition short-term general hospital (02) ==
PROVIDERS: Emergency Provider Nurse Practitioner Family
DX: R10.9 Unspecified abdominal pain (principal); J45.909 Unspecified asthma, uncomplicated
CPT/HCPCS: 99213; A9270; G0463